=== PATIENT | female | born 1970 | race Caucasian/White ===

== ENCOUNTER 2020-01-09 14:12 | Emergency (ER) | payer MEDICAID, SELFPAY ==
[2020-01-09 14:16] VITALS: BP 139/90; PULSE 118; RESP 18; TEMP 36.5; O2SAT 96
--- NOTE | 2020-01-09 14:20 | W.ED.GENAD ---
Discharge Plan Disposition Patient Disposition: HOME Condition: Stable Discharge Details Chief Complaint: Sorethroat Clinical Impression: Pharyngitis, Pharyngeal candidiasis Primary Care Provider: Lanie Vivas ED Provider: Lore Newman Home Meds and New Rx's Prescriptions: New clindamycin HCl 300 mg capsule 300 mg PO TID 10 Days Qty: 30 RF: 0 nystatin 100,000 unit/mL suspension 500,000 unit BC TID 7 Days Qty: 105 RF: 0 Continued metformin 500 mg Tablet 1,000 mg PO BID RF: 0 glipizide 10 mg Tablet Extended Release 24hr 10 mg PO BID RF: 0 Novolin N NPH U-100 Insulin 100 unit/mL Suspension 25 unit SUBCUT .QEVE RF: 0 lovastatin 20 mg Tablet Extended Release 24 Hr 20 mg PO QHS RF: 0 levothyroxine 25 mcg Capsule 25 mcg PO DAILY RF: 0 citalopram 40 mg Tablet 40 mg PO DAILY RF: 0 famotidine 20 mg Tablet 20 mg PO BID RF: 0 oxybutynin chloride 5 mg Tablet 5 mg PO TID RF: 0 Discharge Instructions Instructions: Pharyngitis (ED), Oral Candidiasis (ED) Additional Instructions: Drink plenty of fluids and get plenty of rest. Alternate tylenol and motrin as needed and directed for pain. Take the nystatin solution as directed. Take 1 tsp (5mL) every 6 hours as needed for pain. Take the antibiotics until finished. Follow-up with your primary care doctor on Saturday. Return to the emergency department with any worsening or new concerning symptoms. Discharge Data Discharge Date/Time-TO BE ENTERED AT DEPARTURE: 01/09/20 15:07 Discharge Physician: Lore Newman Medical Decision Making 49-year-old female presents with sore throat and pain with swallowing since yesterday. Patient appears uncomfortable but airway intact and speaking in full sentences. She is afebrile and appears nontoxic. Her uvula is moderately edematous and erythematous with what appears to be small punctate pustules or white papules on soft palate and posterior oropharynx. There is no obvious tonsillar edema or peritonsillar abscess. She has tender cervical lymphadenopathy. She has no submandibular swelling, drooling or trismus. Her lungs are clear. Rapid strep done on arrival and negative. Suspect bacterial versus viral pharyngitis versus oropharyngeal candidiasis. Will obtain a throat culture. With patient's history of diabetes, will cover for possible bacterial pharyngitis versus candidiasis. A dose of Decadron, clindamycin and Magic mouthwash given here. A prescription for nystatin and clindamycin given. She was advised to follow-up with her primary care doctor and to return here at any time if worse. Medical Records Medical records reviewed: Yes I reviewed the patient's medical records. HPI General Mode of arrival: ambulatory. Date/Time Provider Initiated Documentation: 01/09/20 14:19. Limitations to Documentation: no limitations. Information obtained by: patient. HPI Narrative: Pt is a 49-year-old female who presents to the ED w/ a sore throat and difficulty swallowing since yesterday. She states she feels like her tonsils are swollen. She denies any fever, cough, chest pain, shortness of breath. States her sugars have been under control. Related Data Home Medications Medication Instructions Recorded Confirmed Novolin N NPH U-100 Insulin 25 unit SUBCUT .QEVE 01/09/20 01/09/20 citalopram 40 mg PO DAILY 01/09/20 01/09/20 clindamycin HCl 300 mg PO TID 10 Days #30 cap 01/09/20 famotidine 20 mg PO BID 01/09/20 01/09/20 glipizide 10 mg PO BID 01/09/20 01/09/20 levothyroxine 25 mcg PO DAILY 01/09/20 01/09/20 lovastatin 20 mg PO QHS 01/09/20 01/09/20 metformin 1,000 mg PO BID 01/09/20 01/09/20 nystatin 500,000 unit BC TID 7 Days #105 ml 01/09/20 oxybutynin chloride 5 mg PO TID 01/09/20 01/09/20 Previous Rx's Medication Instructions Recorded clindamycin HCl 300 mg PO TID 10 Days #30 cap 01/09/20 nystatin 500,000 unit BC TID 7 Days #105 ml 01/09/20 Allergies Allergy/AdvReac Type Severity Reaction Status Date / Time Penicillins Allergy Anaphylaxsi Unverified 01/09/20 14:15 s aspirin AdvReac Bleeding Unverified 01/09/20 14:16 General Stated Complaint: Sorethroat LORI: 3 Review of Systems All systems reviewed & are unremarkable except as noted in HPI and below Constitutional Constitutional: Reports as per HPI, Denies chills and Denies fever(s) Eyes Eyes: Denies blurry vision ENT Ears, Nose, Mouth, and Throat: Denies dizziness, Reports sore throat and Denies throat swelling Cardiovascular Cardiovascular: Denies chest pain and Denies dyspnea Respiratory Respiratory: Denies cough and Denies dyspnea Gastrointestinal Gastrointestinal: Denies abdominal pain, Denies diarrhea and Denies vomiting Genitourinary Genitourinary: Denies hematuria and Denies dysuria Musculoskeletal Musculoskeletal: Denies back pain and Denies numbness Integumentary/Breasts Skin/Breast: Denies lesions and Denies rash Neurologic Neurologic: Denies dizziness, Denies localized weakness and Denies numbness Allergic/Immunologic Allergic/Immunologic: Denies throat swelling [facility] Medical History (Updated 01/09/20 @ 14:49 by Lore Newman DO) Diabetes (Chronic) Hypothyroidism (Chronic) Social History Smoking/Tobacco Use Status: Former Tobacco Use Alcohol Intake: never Drug use: Never Substance use type: does not use Do you feel safe at home: Yes Do you feel safe in your relationship?: Yes Exam Const General: cooperative, healthy appearing and no acute distress HENMT Head: normal to inspection Ears: hearing grossly normal bilaterally, external ears normal and TM's normal bilaterally General nose exam: external nose normal Mouth: oral mucosae normal Throat: uvula midline and no peritonsillar masses Other: Moderate erythema, edema and punctate pustules versus white papules noted to soft palate and posterior oropharynx. Moderate edema and erythema noted to the uvula. Eyes General: appearance normal, both eyes and all related structures Neck Neck: normal visual inspection Resp Effort & Inspection: normal respiratory effort and able to speak in complete sentences Auscultation: clear to auscultation bilaterally Cardio Rate: regular rate Rhythm: regular rhythm Skin General skin exam: no rashes or lesions noted Neuro General: patient alert, patient awake and patient oriented x3 Motor: muscle tone normal throughout Extrem General: normal to inspection and full ROM Psych Appearance: grossly normal Affect: normal affect Course Vital Signs Vital signs: Vital Signs Temperature 97.7 F 01/09/20 14:16 Pulse 118 H 01/09/20 14:16 Respiratory Rate 18 01/09/20 14:16 Blood Pressure 139/90 01/09/20 14:16 Pulse Oximetry 96 01/09/20 14:16 Temperature 97.7 F 01/09/20 14:16 Temperature Source Temporal Artery Scan 01/09/20 14:16 Pulse 118 H 01/09/20 14:16 Respiratory Rate 18 01/09/20 14:16 Blood Pressure 139/90 01/09/20 14:16 Blood Pressure Position Supine 01/09/20 14:16 Pulse Oximetry 96 01/09/20 14:16 Oxygen Delivery Method Room Air 01/09/20 14:16 Oxygen Flow Rate 0 01/09/20 14:16 Pain Level 10 01/09/20 14:16
[2020-01-09] MEDS: Dexamethasone 10 MG/ML VIAL PO (14:50)
[2020-01-09] MEDS: Clindamycin 150 MG CAP 450 MG PO (14:52)
[2020-01-09] MEDS: Magic Mouthwash 119 ML BTL 10 ML PO (15:00)
== END 2020-01-09 15:07 | disposition home or self-care (01) ==
PROVIDERS: Emergency Provider Physician Assistant; PCP Nurse Practitioner Family
DX: B37.0 Candidal stomatitis (principal); J02.9 Acute pharyngitis, unspecified; E11.9 Type 2 diabetes mellitus without complications; Z79.4 Long term (current) use of insulin
CPT/HCPCS: 87880; 99283; 87070; 87081; J1100

== ENCOUNTER 2020-01-27 10:43 | Outpatient (REF) | payer MEDICAID, SELFPAY ==
[2020-01-27 15:41] LABS: Hemoglobin A1C 7.8 % (3.8-5.6)
[2020-01-27 15:48] LABS: ALT 30 U/L (14-59); AST 15 U/L (15-37); Albumin 3.2 g/dL (3.4-5.0); Alkaline Phosphatase 101 U/L (46-116); Anion Gap 8.5 mmol/L (3-11); BUN 7 mg/dL (7-18); Bilirubin, Total 0.2 mg/dL (0.2-1.0); CO2 30.5 mmol/L (21.0-32.0); CREATININE 0.77 mg/dL (0.55-1.02); Calcium 8.4 mg/dL (8.5-10.1); Calculated LDL 87 mg/dL (<100); Chloride 102 mmol/L (98-107); Cholesterol 157 mg/dL (<200); Glucose 79 mg/dL (74-106); HDL Cholesterol 40 mg/dL (40-60); Potassium 3.7 mmol/L (3.5-5.1); Sodium 141 mmol/L (136-145); Total Protein 6.3 g/dL (6.4-8.2); Triglyceride 150 mg/dL (<150)
[2020-01-27 16:12] LABS: FREE T4 1.17 ng/dL (0.76-1.46)
== END 2020-01-27 11:03 ==
LOC: NCHCN 10:43
PROVIDERS: PCP Nurse Practitioner Family; Visit Provider Family Medicine
DX: E11.9 Type 2 diabetes mellitus without complications (principal); E03.2 Hypothyroidism due to medicaments and other exogenous substances; I10 Essential (primary) hypertension; Z68.42 Body mass index [BMI] 45.0-49.9, adult
CPT/HCPCS: 80053; 80061; 83036; 84439; 84443

== ENCOUNTER 2020-07-03 16:57 | Emergency (ER) | payer MEDICAID, SELFPAY ==
--- NOTE | 2020-07-03 17:00 | DI.RAD_ITS ---
EXAM: XR WRIST LT COMP NAVICULAR CLINICAL HISTORY: FOOSH 3 weeks ago, ongoing pain. TECHNIQUE: 2D digital imaging was performed. COMPARISON: No exams were available for comparison FINDINGS: BONES: No acute fracture is present. No bony destructive lesion is seen. JOINTS: The carpal bones are normally aligned. SOFT TISSUE: Normal. IMPRESSION: Unremarkable radiographs of the left wrist. DATA REPOSITORY: RADIATION DOSE DELIVERED:
[2020-07-03 17:04] VITALS: BP 157/85; PULSE 96; RESP 18; TEMP 36.5; O2SAT 97
--- NOTE | 2020-07-03 18:42 | W.ED.GENAD ---
Discharge Plan Disposition Patient Disposition: HOME Condition: Good Discharge Details Clinical Impression: Left wrist sprain Primary Care Provider: Lanie Vivas ED Provider: Mattie Monreal Home Meds and New Rx's Prescriptions: Continued metformin 500 mg Tablet 1,000 mg PO BID RF: 0 glipizide 10 mg Tablet Extended Release 24hr 10 mg PO BID RF: 0 Novolin N NPH U-100 Insulin 100 unit/mL Suspension 25 unit SUBCUT .QEVE RF: 0 lovastatin 20 mg Tablet Extended Release 24 Hr 20 mg PO QHS RF: 0 levothyroxine 25 mcg Capsule 125 mcg PO DAILY RF: 0 citalopram 40 mg Tablet 40 mg PO DAILY RF: 0 famotidine 20 mg Tablet 20 mg PO BID RF: 0 oxybutynin chloride 5 mg Tablet 5 mg PO TID RF: 0 citalopram 40 mg tablet 40 mg PO DAILY RF: 0 sumatriptan succinate 50 mg tablet See Rx Instructions .ROUTE .COMPLEX RF: 0 amitriptyline 50 mg tablet 50 mg PO HS RF: 0 gabapentin 300 mg capsule 300 mg PO TID RF: 0 montelukast 10 mg tablet 10 mg PO DAILY RF: 0 lovastatin 20 mg tablet 20 mg PO DAILY RF: 0 lisinopril 2.5 mg tablet 2.5 mg PO DAILY RF: 0 Discharge Instructions Instructions: Wrist Sprain (ED) Additional Instructions: wear splint for comfort elevate ice or heat to affected area Ibuprofen 600 mg 4 times daily if needed for pain take with food Acetaminophen 650 mg 4 times daily if needed for pain you can alternate the 2 if needed Referrals: Lanie Vivas [Primary Care Provider] - Medical Decision Making Reports fall on outstretched hand 3 weeks ago and states it is not improving. She does not tolerate me touching her wrist at all but has full range of motion is no obvious deformity no erythema no bruising no deformity. I have obtained an x-ray including scaphoid view with no acute findings. Wrist splint has been applied she should can continue conservative management follow-up with her primary care provider if needed HPI General Date/Time Provider Initiated Documentation: 07/03/20 17:07. Limitations to Documentation: no limitations. Information obtained by: patient. HPI Narrative: Fell on an outstretched hand 3 weeks ago reports left wrist pain. States she has been elevating resting using ibuprofen and acetaminophen for pain and it has not improved. There was no other injury she has no numbness or tingling good CSM to use distally no obvious deformity Related Data Home Medications Medication Instructions Recorded Confirmed Novolin N NPH U-100 Insulin 25 unit SUBCUT .QEVE 01/09/20 01/09/20 citalopram 40 mg PO DAILY 01/09/20 01/09/20 famotidine 20 mg PO BID 01/09/20 07/03/20 glipizide 10 mg PO BID 01/09/20 07/03/20 levothyroxine 125 mcg PO DAILY 01/09/20 01/09/20 lovastatin 20 mg PO QHS 01/09/20 07/03/20 metformin 1,000 mg PO BID 01/09/20 07/03/20 oxybutynin chloride 5 mg PO TID 01/09/20 07/03/20 amitriptyline 50 mg PO HS 07/03/20 07/03/20 citalopram 40 mg PO DAILY 07/03/20 07/03/20 gabapentin 300 mg PO TID 07/03/20 07/03/20 lisinopril 2.5 mg PO DAILY 07/03/20 07/03/20 lovastatin 20 mg PO DAILY 07/03/20 07/03/20 montelukast 10 mg PO DAILY 07/03/20 07/03/20 sumatriptan succinate See Rx Instructions .ROUTE .COMPLEX 07/03/20 07/03/20 Allergies Allergy/AdvReac Type Severity Reaction Status Date / Time Penicillins Allergy Anaphylaxsi Unverified 07/03/20 17:07 s aspirin AdvReac Bleeding Unverified 07/03/20 17:07 General Stated Complaint: Orthopedic LORI: 3 Review of Systems Musculoskeletal Musculoskeletal: Denies deformity, Reports arthralgias and Denies joint swelling Integumentary/Breasts Skin/Breast: Denies lesions and Denies rash [facility] Medical History (Updated 07/03/20 @ 18:41 by Mattie Monreal NP) Diabetes Hypothyroidism Social History Smoking/Tobacco Use Status: Former Tobacco Use Alcohol Intake: former Drug use: Never Substance use type: does not use Do you feel safe at home: Yes Do you feel safe in your relationship?: Yes Exam Const General: cooperative and no acute distress Nutritional Appearance: obese Extrem General: normal to inspection, full ROM and capillary refill normal Left upper extremity: wrist Details: normal to inspection and tenderness (patient does not tolerate exam, jumping each time I touch her hand wrist or forearm. there is no erythema, and she has good ROM) Location: of the anatomic snuffbox, of the dorsal wrist and of the volar wrist; no ecchymosis; no edema Course Vital Signs Vital signs: Vital Signs Temperature 36.5 C 07/03/20 17:04 Pulse 96 H 07/03/20 17:04 Respiratory Rate 18 07/03/20 17:04 Blood Pressure 157/85 H 07/03/20 17:04 Pulse Oximetry 97 07/03/20 17:04 Temperature 36.5 C 07/03/20 17:04 Temperature Source Temporal Artery Scan 07/03/20 17:04 Pulse 96 H 07/03/20 17:04 Respiratory Rate 18 07/03/20 17:04 Respiratory Effort Non-Labored 07/03/20 17:14 Blood Pressure 157/85 H 07/03/20 17:04 Blood Pressure Position Sitting 07/03/20 17:04 Pulse Oximetry 97 07/03/20 17:04 Oxygen Delivery Method Room Air 07/03/20 17:04 Oxygen Flow Rate 0 07/03/20 17:04 Pain Level 9 07/03/20 17:04
--- NOTE | 2020-07-07 16:03 | DI.VRAD_ITS ---
PROCEDURE INFORMATION: Exam: XR Left Wrist Exam date and time: 07/03/2020 5:24 PM Age: 50 years old Clinical indication: Injury or trauma; Fall; Sprain or strain; Wrist; Left TECHNIQUE: Imaging protocol: XR Left wrist. Views: 3 or more views. COMPARISON: No relevant prior studies available. FINDINGS: Bones/joints: Normal. Soft tissues: Normal. IMPRESSION: No acute findings. Dictated and Authenticated by: Marly Doran MD. Ordering:LUPE Phelps MD
== END 2020-07-03 19:05 | disposition home or self-care (01) ==
PROVIDERS: Emergency Provider Nurse Practitioner Acute Care; PCP Nurse Practitioner Family
DX: S63.592A Other specified sprain of left wrist, initial encounter (principal); W19.XXXA Unspecified fall, initial encounter; E11.9 Type 2 diabetes mellitus without complications; Z79.84 Long term (current) use of oral hypoglycemic drugs
CPT/HCPCS: 99283; 73110; L3908

== ENCOUNTER 2020-09-29 03:12 | Outpatient (CLI) | payer MEDICAID, SELFPAY ==
--- NOTE | 2020-09-29 16:00 | NS.NUTBLAN_ITS ---
ASSESSMENT: Nedra ( 50 y/o F) presents for nutritional consult r/t DM and healthy food choices. Patient reports that she is looking for guidance and help with meal planning. She is currently on Glipizide 10mg BID, Metformin 1000mg BID, and Jenuvia 100mg am. BG fingerstick at office visit revealed 123mg/dl ~ 2hrs postprandial (WNL). Her A1c had crept up to 7.8 ( 01/27/20). No recent labs available.. Her documentation shows that she reports hx GDM. Denies blurred vision. Noted: on Gabapentin. She stated that she had Hx BG in 400's.Patient was able to identify desired BG levels for FBG and postprandial. INTERVENTION: Reviewed CHO counting techniques and provided take home literature to review. Recommended <60g CHO per meal period. Reviewed portion sizes related those to 15g/CHO/SVG. Explained concept of pairing VCHO's w/ PRO to help with BG spikes. Reviewed role of fiber in diet to slow glycemic absorption rates. Explained simple Vs complex CHO. Demonstrated and recommended Vizury and [employer]ot[employer] phone sarwat to assist with calories and CHO intake. Provided healthy meal planning literature. She stated she was less interested in weight loss at this time but wants to focus on reducing BG levels. We discussed long-term complications associated with elevated BG levels and recommended regular visits to welding pantograph machine operator, dentist and engineering lab technician. PLAN: Nedra has agreed to return for DM self management education and support. She may benefit from CGM per PCP approval. we can educate and place at this office and review data with her to help with DM self management. Time Spent Face to Face: 1 hour/4 units
== END 2020-09-29 03:32 ==
PROVIDERS: PCP Nurse Practitioner Family; Visit Provider Dietitian, Registered
DX: E11.9 Type 2 diabetes mellitus without complications (principal); Z79.84 Long term (current) use of oral hypoglycemic drugs; Z71.3 Dietary counseling and surveillance
CPT/HCPCS: 97802

== ENCOUNTER 2020-12-23 10:51 | Emergency (ER) | payer MEDICAID, SELFPAY ==
--- NOTE | 2020-12-23 10:52 | W.ED.GENAD ---
Discharge Plan Disposition Patient Disposition: HOME Condition: Stable Discharge Details Clinical Impression: Left shoulder pain Primary Care Provider: Lanie Vivas ED Provider: Blue Navarro Home Meds and New Rx's Prescriptions: Continued nystatin [Nyamyc] 100,000 unit/gram powder 1 applic topical BID Qty: 60 RF: 12 metformin 500 mg Tablet 1,000 mg PO BID RF: 0 glipizide 10 mg Tablet Extended Release 24hr 10 mg PO BID RF: 0 levothyroxine 25 mcg Capsule 125 mcg PO DAILY RF: 0 famotidine 20 mg Tablet 20 mg PO BID RF: 0 oxybutynin chloride 5 mg Tablet 5 mg PO TID RF: 0 citalopram 40 mg tablet 40 mg PO DAILY RF: 0 sumatriptan succinate 50 mg tablet See Rx Instructions .ROUTE .COMPLEX RF: 0 amitriptyline 50 mg tablet 50 mg PO HS RF: 0 gabapentin 300 mg capsule 300 mg PO TID RF: 0 montelukast 10 mg tablet 10 mg PO DAILY RF: 0 lovastatin 20 mg tablet 20 mg PO DAILY RF: 0 lisinopril 2.5 mg tablet 2.5 mg PO DAILY RF: 0 Discharge Instructions Instructions: Shoulder Pain (ED) Additional Instructions: X-ray does not reveal any fracture or dislocation. Wear sling as needed, advance activity as tolerated. Be sure to do passive range of motion at least 4 times daily to avoid a frozen shoulder. Rcuu-mmo-erremar medications as directed for symptomatic control. Cool and/or warm compresses every 2 hours for 20 minutes. Please watch for new or worsening symptoms and return to the ER for any concerns. Please follow-up with your primary care provider as already scheduled. If symptoms persist, outpatient referral to physical therapy, and/or orthopedics and potential MRI may be required for further evaluation of your symptoms. Medical Decision Making 50-year-old female, [id number], presents complaining of left shoulder pain-injury that she sustained approximately 3 weeks ago when she slipped down stairs. Has had pain ever since, worse with movement. Nothing really improves the discomfort. Neuro, vascular, tendon intact. No obvious deformity. Limited range of motion. Given the duration of her injury, will obtain x-ray to rule any bony involvement; however, she will likely need outpatient MRI to further evaluate potential rotator cuff injury. X-ray read by radiology as small calcific foci adjacent to the greater tuberosity suggestive of a calcific peritendinitis. Otherwise the bones and soft tissue are unremarkable appearance. No evidence of fracture or dislocation. Discussed x-ray findings with patient. Discussed options. Will be given 60 IM Toradol now. Will be given a sling, we discussed the importance of passive range of motion. She will continue [id number] medications, using her sling, and follow-up with her primary care provider. We did discuss that outpatient physical therapy and/or referral to orthopedics and MRI may be required if conservative therapy is not helping. Patient agreeable to this plan and has no additional questions or concerns. Medical Records Medical records reviewed: Yes I reviewed the patient's medical records. HPI General Mode of arrival: ambulatory. Date/Time Provider Initiated Documentation: 12/23/20 10:52. Limitations to Documentation: no limitations. Information obtained by: patient. HPI Narrative: This is a 50-year-old female, [id number], past medical history that includes diabetes, GERD, hypertension, hypothyroidism, migraines, morbid obesity, presenting for left shoulder injury. Patient states that she fell approximately 3 weeks ago walking down stairs, her left leg gave out, this does happen occasionally. She was using her left arm to hold onto the railing, describes her injury as a jerking and twisting mechanism. She states that she has had pain ever since, moderate in nature, movement makes it worse. She has had occasional tingling in her left arm, primarily in her hand, denies weakness or numbness. She has not been evaluated for this. She is using eggn-vjv-znefszi Tylenol arthritis medication as well as warm compresses with minimal relief. She is scheduled to be seen by her primary care provider on the of this month but does not feel as though she can wait that long. She denies any other injuries from the fall. Denies striking her head. She denies any chest pain, shortness of breath abdominal pain, nausea, vomiting, hematuria. She does report chronic back pain that is unchanged. Related Data Home Medications Medication Instructions Recorded Confirmed famotidine 20 mg PO BID 01/09/20 12/23/20 glipizide 10 mg PO BID 01/09/20 12/23/20 levothyroxine 125 mcg PO DAILY 01/09/20 12/23/20 metformin 1,000 mg PO BID 01/09/20 12/23/20 oxybutynin chloride 5 mg PO TID 01/09/20 12/23/20 amitriptyline 50 mg PO HS 07/03/20 12/23/20 citalopram 40 mg PO DAILY 07/03/20 12/23/20 gabapentin 300 mg PO TID 07/03/20 12/23/20 lisinopril 2.5 mg PO DAILY 07/03/20 12/23/20 lovastatin 20 mg PO DAILY 07/03/20 12/23/20 montelukast 10 mg PO DAILY 07/03/20 12/23/20 sumatriptan succinate See Rx Instructions .ROUTE .COMPLEX 07/03/20 12/23/20 nystatin 100,000 unit/gram topical 1 applic TOPICAL BID #60 g 09/14/20 12/23/20 powder Previous Rx's Medication Instructions Recorded nystatin 100,000 unit/gram topical 1 applic TOPICAL BID #60 g 09/14/20 powder Allergies Allergy/AdvReac Type Severity Reaction Status Date / Time bupropion [Wellbutrin] Allergy Severe Verified 12/23/20 10:57 lamotrigine [From Lamictal] Allergy Severe Verified 12/23/20 10:57 Penicillins Allergy Anaphylaxsi Unverified 12/23/20 10:57 s ibuprofen AdvReac Intermediate nose Verified 12/23/20 10:57 bleeding aspirin AdvReac Bleeding Unverified 12/23/20 10:57 General LORI: 3 Review of Systems Constitutional Constitutional: Denies headache(s) and Denies weakness ENT Ears, Nose, Mouth, and Throat: Denies headache(s) and Denies neck pain Cardiovascular Cardiovascular: Denies chest pain and Denies dyspnea Respiratory Respiratory: Denies dyspnea Gastrointestinal Gastrointestinal: Denies abdominal pain, Denies nausea and Denies vomiting Musculoskeletal Musculoskeletal: Reports back pain, Denies neck pain, Denies numbness, Reports stiffness and Reports tingling Integumentary/Breasts Skin/Breast: Denies erythema Neurologic Neurologic: Denies headache(s), Denies numbness, Reports tingling and Denies weakness [facility] Medical History Diabetes GERD (gastroesophageal reflux disease) Hypertension Hypothyroidism Leg mass Migraine Morbidly obese Multiple joint pain AMANDA (obstructive sleep apnea) Skin ulcer of groin, limited to breakdown of skin seconary to obesity and DM Yeast dermatitis Social History Smoking/Tobacco Use Status: Former Tobacco Use Smoking risk assessment performed?: Yes Alcohol Intake: former Drug use: Never Substance use type: does not use Current gender identity: female Do you feel safe at home: Yes Do you feel safe in your relationship?: Yes Exam Const General: cooperative, healthy appearing, comfortable and no acute distress Orientation: alert, awake and oriented x3 HENMI Head: normal to inspection, normocephalic and atraumatic Eyes General: appearance normal, both eyes and all related structures Conjunctivae: conjunctivae normal Neck Neck: normal visual inspection, full ROM, trachea midline, supple and nontender Chest Chest: normal inspection of the chest Resp Effort & Inspection: normal respiratory effort and able to speak in complete sentences Auscultation: clear to auscultation bilaterally Cardio Rate: regular rate Rhythm: regular rhythm GI Palpation: soft and nontender Back/Spine/Pelvis Back: back tenderness (Diffuse lumbar) Skin General skin exam: no rashes or lesions noted Neuro General: patient alert, patient awake, patient oriented x3, moves all extremities and no focal motor deficits Speech: speech normal Gait: normal gait Motor: muscle tone normal throughout Sensory Exam: no sensory deficits noted Extrem General: normal to inspection and capillary refill normal Left upper extremity: normal to inspection, normal capillary refill, shoulder/upper arm Details: inspection abnormal, tenderness (Diffusely over the entire shoulder, no bony point tenderness), axillary nerve sensory function normal and abnormal ROM (Patient unable to raise arm greater than 45 degrees in any direction) Details: held in an abnormal fashion Details: in ADduction, pain with active ROM and pain with passive ROM; no swelling, elbow/forearm Details: normal to inspection and normal ROM; no tenderness and no swelling, wrist Details: normal to inspection and normal vascular exam; no tenderness and no swelling and hand Details: normal to inspection, normal capillary refill, neuromotor exam normal, neurosensory exam normal and tendon exam normal Psych Appearance: grossly normal Mental Status: mental status grossly normal
[2020-12-23 10:55] VITALS: BP 142/104; PULSE 88; RESP 18; TEMP 36.5; O2SAT 100
--- NOTE | 2020-12-23 11:00 | DI.RAD_ITS ---
EXAM: XR SHOULDER LT COMPLETE 2+V CLINICAL HISTORY: fall 3 weeks ago, pain continues TECHNIQUE: COMPARISON: No exams were available for comparison FINDINGS: Five views were obtained. There are small calcific foci adjacent to the greater tuberosity of the hu merus suggestive of a calcific peritendinitis. Otherwise the bones and soft tissues are unremarkable in appearance. No evidence of a fracture or dislocation. IMPRESSION: RADIATION DOSE DELIVERED: Total DLP
--- NOTE | 2020-12-29 08:36 | W.NUTCONSULT ---
Date of service: 12/27/20 Time of Service: 08:36 Nutritional Consult ASSESSMENT: Nedra returns for medical nutrition therapy for diabetes self management education. Most recent A1C from last year (02/10/20) was 7.8% indicates mildly elevated blood sugars. Has hx of blood sugars > 300 mg/dl but reports this has not happened in last 6 months. Meds include metformin BID. She checks her sugars most days, fasting blood sugars reported < 100mg/dl, post prandial levels reports < 140 mg/dl. Diet recall indicates reliance on processed foods. BMI indicates class 2 obesity INTERVENTION: Overall, Nedra is managing her Dm2 well by following medical regime and checking blood sugars on regular basis. Goal at this time is 10% weight loss in next 6 months buy following a lower calorie diet and increasing exercise to 150 min weekly. Educated Nedra on meal plans to help her reduce her caloric intake. Encouraged Nedra to walk 1-2 miles daily. Written material and meal plans provided MONITORING AND EVALUATION: No follow up meeting scheduled at this time. I encouraged Nedra to make follow up appt. if her A1C is > 7% at next blood draw. Time Spent in Nutritional Counseling and Treatment: 30
== END 2020-12-23 12:28 | disposition home or self-care (01) ==
PROVIDERS: Emergency Provider Physician Assistant; PCP Nurse Practitioner Family
DX: M25.512 Pain in left shoulder (principal); W10.8XXA Fall (on) (from) other stairs and steps, initial encounter
CPT/HCPCS: 96372; 99284; 73030; 99283

== ENCOUNTER 2020-12-27 08:03 | Outpatient (CLI) | payer MEDICAID, SELFPAY ==
--- NOTE | 2020-12-27 13:30 | NS.NUTBLAN_ITS ---
Nedra returns for medical nutrition therapy for diabetes self management education. Most recent A1C: 7.8% (01/27/20). Reports haivng blood work this week. Nedra reports fasting sugars typically 80-100 mg and post prandial levels < 150 mg/dl. She continues to take metformin. Diet record indicates reliance on convenience foods. Session today focused on ways to incorporate more home cooked meals and to follow a consistent carbohydrate intake during day. Encouraged weekly exercise of minimum of 150 min per week. Overall, Nedra appears to be managing her DM2 well with adequate glycemic control. Goal at this time is for 10% weight loss in next 6 months and increase in home made meals. No follow up appt. made at this time.
== END 2020-12-27 08:04 | disposition home or self-care (01) ==
LOC: DS 12-28 08:05
PROVIDERS: Visit Provider Dietitian, Registered
DX: E11.9 Type 2 diabetes mellitus without complications (principal); Z79.84 Long term (current) use of oral hypoglycemic drugs; Z71.3 Dietary counseling and surveillance
CPT/HCPCS: 97803

== ENCOUNTER 2021-01-25 02:15 | Outpatient (CLI) | payer MEDICAID, SELFPAY ==
--- NOTE | 2021-01-25 13:00 | DI.MAMMO_ITS ---
Exam(s) MAMMO SCREENING EXAM: MAMMO SCREENING CLINICAL HISTORY: SCREENING,PREVENTIVE HEALTH CARE,Z00.00 TECHNIQUE: Mammograms were interpreted according to the usual protocol including computer analysis w Study[employer] CAD system, tomosynthesis and C-view imaging. COMPARISON: FINDINGS: The breasts are of moderate density with fairly symmetrical distribution of fibroglandular tissue. N o dominant mass or clumped microcalcification is identified in either breast. The current examinatio n is compared with previous examinations including April 2018 and there has been no gross interval c hange in appearance comparison with prior studies. IMPRESSION: No specific evidence of malignancy at this time. Routine screening examinations are suggested at yea rly intervals in this age group according to the ACS ACR guidelines. BI-RADS Category 1 - Negative Breast Density - Category B - Scattered areas of fibroglandular density
== END 2021-01-25 02:35 ==
PROVIDERS: PCP Nurse Practitioner Family; Visit Provider Nurse Practitioner Family
DX: Z12.31 Encounter for screening mammogram for malignant neoplasm of breast (principal)
CPT/HCPCS: 77063; 77067

== ENCOUNTER 2021-03-03 13:00 | Outpatient (CLI) | payer MEDICAID, SELFPAY ==
--- NOTE | 2021-03-03 13:00 | NS.NUTBLAN_ITS ---
Nedra returns for Medical Nutrition Therapy for diabetes self management education. Most recent A1C: 7.3% (July 2020) indicates slightly elevated blood sugars. Dm meds include: januvia 100 mg qd, metformin 500 mg BID, 6 units humolog with dinner. Has been using Libre2 continuous glucose monitor for last 14 days. Diet recall indicates mostly well balanced meals, occasionally skips meals or eats high sugar/high fat meals. Walks daily 30-45 minutes. Complains of foot pain/swelling. BMI 48 indicates morbid obesity. Ambulatory glucose profile indicates meeting glycemic goals: in target range 84%, no hypoglycemia noted, hyperglycemia 14% of time. Overall, Nedra is very happy with using her cgm- she likes checking her serum glucose multiple times during day in order to adjust meals for glycemic control in goal range. Educated Nedra how to place sensor and had her friend do it during visit. Friend (Makenzie) lives across from Nedra and they have been good supports for each other. Reviewed glucose report with Nedra and encouraged her to continue to meet glycemic goals. Encouraged Nedra to follow up with PCP re: referral to food service representative for annual foot eval. Encouraged Nedra also to have annual eye exam. No follow up planned at this time. Recommend A1C at next blood draw.
== END 2021-03-03 13:01 ==
LOC: DS 03-15 13:52
PROVIDERS: PCP Nurse Practitioner Family; Visit Provider Dietitian, Registered
DX: E11.9 Type 2 diabetes mellitus without complications (principal); Z79.4 Long term (current) use of insulin; Z71.3 Dietary counseling and surveillance; Z79.84 Long term (current) use of oral hypoglycemic drugs
CPT/HCPCS: 97803

== ENCOUNTER 2021-06-02 16:48 | Outpatient (REF) | payer MEDICAID, SELFPAY ==
[2021-06-02 20:26] LABS: Anion Gap 8.2 mmol/L (3-11); BUN 13 mg/dL (7-18); CO2 28.8 mmol/L (21.0-32.0); CREATININE 0.8 mg/dL (0.55-1.02); Calcium 9.1 mg/dL (8.5-10.1); Chloride 100 mmol/L (98-107); Glucose 339 mg/dL (74-106); Potassium 4.2 mmol/L (3.5-5.1); Sodium 137 mmol/L (136-145); TSH (W/Ref FT4) 8.17 uIU/mL (0.36-3.74)
[2021-06-02 20:44] LABS: FREE T4 1.03 ng/dL (0.76-1.46)
== END 2021-06-02 16:49 | disposition home or self-care (01) ==
LOC: NCHCN 16:48
PROVIDERS: PCP Nurse Practitioner Family; Visit Provider Nurse Practitioner Family
DX: E11.9 Type 2 diabetes mellitus without complications (principal); E03.2 Hypothyroidism due to medicaments and other exogenous substances
CPT/HCPCS: 80048; 84439; 84443

== ENCOUNTER 2021-12-01 16:27 | Outpatient (REF) | payer MEDICAID, SELFPAY ==
[2021-12-01 18:41] LABS: COMMENT (LAB VIEW ONLY) 38.66 mg/dL; Microalb ug/mg Crea 11.6 ug/mg Cr
[2021-12-01 18:46] LABS: Hemoglobin A1C 7.1 % (<5.7)
[2021-12-01 18:54] LABS: ALT 27 U/L (14-59); AST 14 U/L (15-37); Albumin 4.1 g/dL (3.4-5.0); Alkaline Phosphatase 113 U/L (46-116); BUN 12 mg/dL (7-18); Bilirubin, Total 0.3 mg/dL (0.2-1.0); CREATININE 0.7 mg/dL (0.55-1.02); Calcium 9.7 mg/dL (8.5-10.1); Calculated LDL 98 mg/dL (<100); Chloride 100 mmol/L (98-107); Cholesterol 174 mg/dL (<200); Glucose 116 mg/dL (74-106); HDL Cholesterol 43 mg/dL (40-60); Potassium 4.3 mmol/L (3.5-5.1); Sodium 138 mmol/L (136-145); TSH 2.31 uIU/mL (0.36-3.74); Triglyceride 168 mg/dL (<150)
== END 2021-12-01 16:28 | disposition home or self-care (01) ==
LOC: NCHCN 16:27
PROVIDERS: PCP Nurse Practitioner Family; Visit Provider Physician Assistant
DX: E03.2 Hypothyroidism due to medicaments and other exogenous substances (principal); E11.9 Type 2 diabetes mellitus without complications; I10 Essential (primary) hypertension
CPT/HCPCS: 80053; 80061; 82043; 82570; 83036; 84443

== ENCOUNTER 2022-05-19 10:32 | Emergency (ER) | payer MEDICAID, SELFPAY ==
[2022-05-19 10:42] VITALS: BP 143/71; PULSE 71; RESP 18; O2SAT 99
[2022-05-19] MEDS: Ketorolac 60 MG/2 ML VIAL IM (11:23)
--- NOTE | 2022-05-19 11:31 | W.ED.GENAD ---
Discharge Plan Disposition Patient Disposition: HOME Condition: Improving Discharge Details Clinical Impression: Acute exacerbation of chronic low back pain Primary Care Provider: Lanie Vivas ED Provider: Blue Navarro Home Meds and New Rx's Prescriptions: New naproxen [Naprosyn] 500 mg tablet 500 mg PO BID PRNQty: 14 0RF cyclobenzaprine 5 mg tablet 5 mg PO TID PRNQty: 10 0RF Continued nystatin [Nyamyc] 100,000 unit/gram powder 1 applic topical BID Qty: 60 12RF Rx Instructions: apply to affected area BID for 7days. use prn for yeast dermatitis hydroxyzine HCl 25 mg tablet 25 mg PO DAILY Label Comments: TAKE 1-2 TABLETS BY MOUTH AT NIGHT NEEDED FOR SLEEP duloxetine 30 mg capsule,delayed release(DR/EC) 2 cap PO DAILY Label Comments: TAKE ONE CAPSULE BY MOUTH EVERY DAY metformin 500 mg Tablet 1,000 mg PO BID glipizide 10 mg Tablet Extended Release 24hr 10 mg PO BID levothyroxine 25 mcg Capsule 125 mcg PO DAILY famotidine 20 mg Tablet 20 mg PO BID oxybutynin chloride 5 mg Tablet 5 mg PO TID citalopram 40 mg tablet 40 mg PO DAILY Label Comments: TK 1 T PO D sumatriptan succinate 50 mg tablet See Rx Instructions .ROUTE .COMPLEX Label Comments: TK 1 T PO AOS OF MIGRAINE. MAY REPEAT IN 2 H FOR 1 Rx Instructions: 50 mg orally amitriptyline 50 mg tablet 50 mg PO HS Label Comments: TK 1 T PO D HS gabapentin 300 mg capsule 300 mg PO TID Label Comments: TK 1 C PO TID montelukast 10 mg tablet 10 mg PO DAILY Label Comments: TK 1 T PO D FOR ASTHMA lovastatin 20 mg tablet 20 mg PO DAILY Label Comments: TK 1 T PO D WITH ZARA MEAL lisinopril 2.5 mg tablet 2.5 mg PO DAILY Label Comments: TK 1 T PO D Discharge Instructions Instructions: Back Pain (ED) Additional Instructions: Naprosyn and Flexeril as directed, Flexeril may cause drowsiness. Gentle stretching as tolerated. Cool and/or warm compresses every 2 hours for 20 minutes. Please watch for new or worsening symptoms and return to the ER for any concerns. Lastly, please contact your primary care provider on Saturday to discuss your ER visit, ongoing symptoms, and need for outpatient reevaluation. Discharge Data Discharge Date/Time-TO BE ENTERED AT DEPARTURE: 05/19/22 11:54 Medical Decision Making This is a 51-year-old female who reports chronic back pain for at least 10 years, reports having had care in [place], back injections which actually did not help and caused some intermittent tingling in her left lower extremity approximately 5 years ago. She has subsequently moved to the area, has been seen by our pain team as well as through her PCP and has participated in physical therapy. 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 Denies IV drug use, fever, chest pain, abdominal pain, nausea, vomiting, change in bowel or bladder function, focal weakness. Clinically she appears well, nontoxic, neurologically intact. No midline point tenderness or evidence of cauda equina. Discussed options, she is agreeable to IM Toradol and I will provide a prescription for Flexeril. Recommend she contact her PCP on Saturday to discuss her ER visit and ongoing discomfort. Patient does wonder if crutches or a walker would be beneficial. We will provide crutches Standard discharge and return precautions were provided. Patient understands, is agreeable to this plan, and has no additional questions or concerns upon discharge. This documentation was generated using [employer] dictation system, please disregard any oddities of phrase or misspellings. Medical Records Medical records reviewed: Yes I reviewed the patient's medical records. HPI General Mode of arrival: ambulatory. Date/Time Provider Initiated Documentation: 05/19/22 10:36. Limitations to Documentation: no limitations. Information obtained by: patient. History of Present Illness 51 year old F presents to the emergency department with the chief complaint of Chronic back pain exacerbation, described as moderate, with intensity rated at 7. Quality is described as aching, and is localized to the back and left. Patient extremity (Left lower). Patient started experiencing this week(s) (1) and it has been constant. No relieving factors improve symptom(s), Movement worsens symptoms . Patient notes denies fever/chills, nausea/vomiting, rash and weakness. Patient did receive the following treatments prior to arrival, none Related Data Home Medications Medication Instructions Recorded Confirmed famotidine 20 mg tablet 20 mg PO BID 01/09/20 12/23/20 glipizide 10 mg tablet, extended 10 mg PO BID 01/09/20 05/19/22 release 24 hr levothyroxine 25 mcg capsule 125 mcg PO DAILY 01/09/20 05/19/22 metformin 500 mg tablet 1,000 mg PO BID 01/09/20 05/19/22 oxybutynin chloride 5 mg tablet 5 mg PO TID 01/09/20 05/19/22 amitriptyline 50 mg tablet 50 mg PO HS 07/03/20 12/23/20 citalopram 40 mg tablet 40 mg PO DAILY 07/03/20 12/23/20 gabapentin 300 mg capsule 300 mg PO TID 07/03/20 12/23/20 lisinopril 2.5 mg tablet 2.5 mg PO DAILY 07/03/20 05/19/22 lovastatin 20 mg tablet 20 mg PO DAILY 07/03/20 12/23/20 montelukast 10 mg tablet 10 mg PO DAILY 07/03/20 05/19/22 sumatriptan succinate 50 mg tablet See Rx Instructions .Route .COMPLEX 07/03/20 12/23/20 nystatin 100,000 unit/gram topical 1 applic topical BID #60 grams 09/14/20 05/19/22 powder ([facility]) cyclobenzaprine 5 mg tablet 5 mg PO TID PRN #10 tabs 05/19/22 duloxetine 30 mg capsule,delayed 2 cap PO DAILY 05/19/22 05/19/22 release hydroxyzine HCl 25 mg tablet 25 mg PO DAILY 05/19/22 05/19/22 naproxen 500 mg tablet (Naprosyn) 500 mg PO BID PRN #14 tabs 05/19/22 Previous Rx's Medication Instructions Recorded nystatin 100,000 unit/gram topical 1 applic topical BID #60 grams 09/14/20 powder ([facility]) cyclobenzaprine 5 mg tablet 5 mg PO TID PRN #10 tabs 05/19/22 naproxen 500 mg tablet (Naprosyn) 500 mg PO BID PRN #14 tabs 05/19/22 Allergies Allergy/AdvReac Type Severity Reaction Status Date / Time bupropion [Wellbutrin] Allergy Severe Verified 06/14/21 10:35 lamotrigine [From Lamictal] Allergy Severe Verified 06/14/21 10:35 Penicillins Allergy Anaphylaxsi Unverified 06/14/21 10:35 s ibuprofen AdvReac Intermediate nose Verified 06/14/21 10:35 bleeding aspirin AdvReac Bleeding Unverified 06/14/21 10:35 General Stated Complaint: Nk/Back Pain LORI: 4 Review of Systems Constitutional Constitutional: Denies fever(s) and Denies weakness Cardiovascular Cardiovascular: Denies chest pain and Denies dyspnea Respiratory Respiratory: Denies dyspnea Gastrointestinal Gastrointestinal: Denies abdominal pain, Denies nausea and Denies vomiting Genitourinary Genitourinary: Denies dysuria Musculoskeletal Musculoskeletal: Reports back pain, Denies numbness, Reports stiffness and Reports tingling Integumentary/Breasts Skin/Breast: Denies rash Neurologic Neurologic: Denies numbness, Reports tingling and Denies weakness PFSH All Active Problems Left shoulder pain (Acute) Acute exacerbation of chronic low back pain (Acute) Morbidly obese (Acute) Yeast dermatitis (Acute) Skin ulcer of groin, limited to breakdown of skin (Acute) seconary to obesity and DM Medical History Diabetes GERD (gastroesophageal reflux disease) Hypertension Hypothyroidism Leg mass Migraine Multiple joint pain AMANDA (obstructive sleep apnea) Social History Smoking/Tobacco Use Status: Current every day Tobacco Type: cigarettes Smoking risk assessment performed?: Yes Alcohol Intake: former Drug use: Never Substance use type: does not use Current gender identity: female Do you feel safe at home: Yes Do you feel safe in your relationship?: Yes Exam Const General: cooperative, healthy appearing, comfortable and no acute distress Orientation: alert and awake [facility] Head: normal to inspection, normocephalic and atraumatic Eyes Conjunctivae: conjunctivae normal Neck Neck: normal visual inspection, full ROM, no meningeal signs, trachea midline and supple Resp Effort & Inspection: normal respiratory effort and able to speak in complete sentences Auscultation: clear to auscultation bilaterally Cardio Rate: regular rate Rhythm: regular rhythm GI Inspection: obesity Palpation: soft and nontender Back/Spine/Pelvis Back: no CVA tenderness and back tenderness (Diffuse, mild left lower lumbar) Thoracic/Lumbar Spine: straight leg raise positive (R neg, L 10 degrees) Sacroiliac joints: on the left tender to palpation Skin General skin exam: no rashes or lesions noted Neuro General: patient alert, patient awake, moves all extremities and no focal motor deficits Cognition: normal cognition Speech: speech normal Gait: normal gait (Minimally) Motor: muscle tone normal throughout and strength 5/5 throughout Sensory Exam: no sensory deficits noted Extrem General: normal to inspection, full ROM, capillary refill normal, no pedal edema and no calf tenderness Psych Appearance: grossly normal Mental Status: mental status grossly normal Course Vital Signs Vital signs: Vital Signs Pulse 71 05/19/22 10:42 Respiratory Rate 18 05/19/22 10:42 Blood Pressure 143/71 H 05/19/22 10:42 Pulse Oximetry 99 05/19/22 10:42 Temperature Source Temporal Artery Scan 05/19/22 10:42 Pulse 71 05/19/22 10:42 Respiratory Rate 18 05/19/22 10:42 Respiratory Effort Non-Labored 05/19/22 10:45 Blood Pressure 143/71 H 05/19/22 10:42 Blood Pressure Position Supine 05/19/22 10:42 Pulse Oximetry 99 05/19/22 10:42 Oxygen Delivery Method Room Air 05/19/22 10:42 Oxygen Flow Rate 0 05/19/22 10:42 Pain Level 0 05/19/22 10:42
== END 2022-05-19 11:54 | disposition home or self-care (01) ==
PROVIDERS: Emergency Provider Physician Assistant; PCP Nurse Practitioner Family
DX: G89.11 Acute pain due to trauma (principal); G89.29 Other chronic pain; M54.50 Low back pain, unspecified; E11.9 Type 2 diabetes mellitus without complications; I10 Essential (primary) hypertension; F17.210 Nicotine dependence, cigarettes, uncomplicated; Z79.84 Long term (current) use of oral hypoglycemic drugs; X50.9XXA Other and unspecified overexertion or strenuous movements or postures, initial encounter; Y99.8 Other external cause status
CPT/HCPCS: 96372; 99284; J1885

== ENCOUNTER 2022-10-11 09:40 | Outpatient (REF) | payer MEDICAID, SELFPAY ==
[2022-10-11 15:24] LABS: HCT 46.4 % (36.0-46.0); HGB 15.4 g/dL (11.2-15.7); MCH 30.7 pg (27.0-33.0); MCHC 33.2 % (32.0-36.0); MCV 93 fL (80-95); MPV 11.3 fL (8.0-11.0); Platelet Count 366 10^3/uL (130-400); RBC 5.01 10^6/uL (3.93-5.22); RDW 12.6 % (11.7-14.6); RDW-SD 43.2 fL; WBC 13.41 10^3/uL (4.4-10.8)
[2022-10-11 15:49] LABS: ALT 29 U/L (14-59); AST 18 U/L (15-37); Albumin 3.9 g/dL (3.4-5.0); Alkaline Phosphatase 153 U/L (46-116); Anion Gap 8.6 mmol/L (3-11); BUN 13 mg/dL (7-18); Bilirubin, Total 0.3 mg/dL (0.2-1.0); CO2 30.4 mmol/L (21.0-32.0); CREATININE 0.7 mg/dL (0.55-1.02); Calcium 9.6 mg/dL (8.5-10.1); Calculated LDL 124 mg/dL (<100); Chloride 98 mmol/L (98-107); Cholesterol 199 mg/dL (<200); Glucose 216 mg/dL (74-106); HDL Cholesterol 43 mg/dL (40-60); Potassium 4.6 mmol/L (3.5-5.1); Sodium 137 mmol/L (136-145); TSH 2.11 uIU/mL (0.36-3.74); Total Protein 7.5 g/dL (6.4-8.2); Triglyceride 160 mg/dL (<150)
[2022-10-11 15:53] LABS: Hemoglobin A1C 9.1 % (<5.7)
== END 2022-10-11 09:41 | disposition home or self-care (01) ==
LOC: NCHCN 09:40
PROVIDERS: PCP Nurse Practitioner Family; Visit Provider Physician Assistant
DX: E03.2 Hypothyroidism due to medicaments and other exogenous substances (principal); E11.9 Type 2 diabetes mellitus without complications; I10 Essential (primary) hypertension
CPT/HCPCS: 80053; 80061; 85027; 83036; 84443

== ENCOUNTER 2022-10-20 06:31 | Emergency (ER) | payer MEDICAID, SELFPAY ==
[2022-10-20 06:33] VITALS: PULSE 93; RESP 16; TEMP 36.8; O2SAT 99
[2022-10-20 06:38] VITALS: BP 146/79
--- NOTE | 2022-10-20 07:43 | W.ED.GENAD ---
Discharge Plan Disposition Patient Disposition: Home Condition: Stable Discharge Details Clinical Impression: Otitis externa, Otitis media Primary Care Provider: Lanie Vivas ED Provider: Lore Newman Home Meds and New Rx's Prescriptions: New clindamycin HCl 150 mg capsule 450 mg PO TID 7 Days Qty: 63 0RF methylprednisolone 4 mg tablets,dose pack See Rx Instructions .ROUTE .COMPLEX MDD see package directions 6 Days Qty: 21 0RF Rx Instructions: orally per package directions PO per package directions; Continued nystatin [Nyamyc] 100,000 unit/gram powder 1 applic topical BID Qty: 60 12RF Rx Instructions: apply to affected area BID for 7days. use prn for yeast dermatitis hydroxyzine HCl 25 mg tablet 25 mg PO DAILY Label Comments: TAKE 1-2 TABLETS BY MOUTH AT NIGHT NEEDED FOR SLEEP duloxetine 30 mg capsule,delayed release(DR/EC) 2 cap PO DAILY Label Comments: TAKE ONE CAPSULE BY MOUTH EVERY DAY naproxen [Naprosyn] 500 mg tablet 500 mg PO BID PRNQty: 14 0RF cyclobenzaprine 5 mg tablet 5 mg PO TID PRNQty: 10 0RF metformin 500 mg Tablet 1,000 mg PO BID glipizide 10 mg Tablet Extended Release 24hr 10 mg PO BID levothyroxine 25 mcg Capsule 125 mcg PO DAILY famotidine 20 mg Tablet 20 mg PO BID oxybutynin chloride 5 mg Tablet 5 mg PO TID citalopram 40 mg tablet 40 mg PO DAILY Label Comments: TK 1 T PO D sumatriptan succinate 50 mg tablet See Rx Instructions .ROUTE .COMPLEX Label Comments: TK 1 T PO AOS OF MIGRAINE. MAY REPEAT IN 2 H FOR 1 Rx Instructions: 50 mg orally amitriptyline 50 mg tablet 50 mg PO HS Label Comments: TK 1 T PO D HS gabapentin 300 mg capsule 300 mg PO TID Label Comments: TK 1 C PO TID montelukast 10 mg tablet 10 mg PO DAILY Label Comments: TK 1 T PO D FOR ASTHMA lovastatin 20 mg tablet 20 mg PO DAILY Label Comments: TK 1 T PO D WITH ZARA MEAL lisinopril 2.5 mg tablet 2.5 mg PO DAILY Label Comments: TK 1 T PO D Discharge Instructions Instructions: Otitis Externa (ED), Ear Infection (ED) Additional Instructions: Your symptoms appear to be mainly due to an outer ear infection or otitis externa. You may also be developing a middle ear infection or otitis media. You are being sent home with antibiotic eardrops to apply 3 drops in your left ear twice daily for 7 to 10 days. A prescription for a low-dose steroid pack has also been sent electronically to your pharmacy to take as directed until finished to help with pain and swelling. Be sure to check your sugar regularly and adjust your insulin as needed as steroids can raise your blood sugar. A prescription for an oral antibiotic has also been sent electronically to your pharmacy to take if your symptoms do not improve or worsen. Follow-up with your primary care doctor in 1 week. You should also follow-up with the ear nose and throat doctor for further evaluation in the next 2 weeks. Return to the emergency department with any worsening or new concerning symptoms. Referrals: Long Valenzuela DO [OSTEOPATHIC DOCTOR] - Tyrese Reddy MD [ [facility] STAFF PHYSICIAN] - Discharge Data Discharge Physician: Lore Newman Medical Decision Making 52-year-old female with a history of morbid obesity, hypertension, hypothyroidism, GERD, diabetes presents for left ear pain for the past 4 days. Her blood pressure and heart rate are moderately elevated. She has tenderness to pulling on the auricle and palpation of the tragus of the left ear. Inspection of ear canal notes that the canal is edematous and erythematous with clear discharge. There appears to be a possible effusion of the left TM but no significant erythema. Suspect presentation consistent with otitis externa with possible developing otitis media. Will cover with Cipro HC otic drops and a Medrol Dosepak for pain and inflammation. Advised patient to check her sugars regularly and adjust her insulin as needed while taking the steroids. We will also send a prescription for oral antibiotics to her pharmacy if her symptoms do not improve or worsen. She has a history of anaphylaxis to penicillin and Zithromax as interactions with her other medications so a prescription for clindamycin sent. She was given ENT follow-up information. Advised to follow up with the primary care doctor for re-evaluation. Usual and customary return precautions given prior to discharge. Medical Records Medical records reviewed: Yes I reviewed the patient's medical records. HPI General Mode of arrival: ambulatory. Date/Time Provider Initiated Documentation: 10/20/22 06:47. Limitations to Documentation: no limitations. Information obtained by: patient. HPI Narrative: Patient is a 52-year-old female with a history of morbid obesity, hypertension, hypothyroidism, GERD, diabetes presents for left ear pain for the past 4 days. She states she has recently noted decreased hearing and clear drainage from her left ear. She denies any recent swimming. She states she has been taking Tylenol without relief. She cannot take ibuprofen due to nosebleeding in the past. She denies any fever, headache, nasal congestion, sore throat, or neck pain. Related Data Home Medications Medication Instructions Recorded Confirmed famotidine 20 mg tablet 20 mg PO BID 01/09/20 12/23/20 glipizide 10 mg tablet, extended 10 mg PO BID 01/09/20 05/19/22 release 24 hr levothyroxine 25 mcg capsule 125 mcg PO DAILY 01/09/20 05/19/22 metformin 500 mg tablet 1,000 mg PO BID 01/09/20 05/19/22 oxybutynin chloride 5 mg tablet 5 mg PO TID 01/09/20 05/19/22 amitriptyline 50 mg tablet 50 mg PO HS 07/03/20 12/23/20 citalopram 40 mg tablet 40 mg PO DAILY 07/03/20 12/23/20 gabapentin 300 mg capsule 300 mg PO TID 07/03/20 12/23/20 lisinopril 2.5 mg tablet 2.5 mg PO DAILY 07/03/20 05/19/22 lovastatin 20 mg tablet 20 mg PO DAILY 07/03/20 12/23/20 montelukast 10 mg tablet 10 mg PO DAILY 07/03/20 05/19/22 sumatriptan succinate 50 mg tablet See Rx Instructions .Route .COMPLEX 07/03/20 12/23/20 nystatin 100,000 unit/gram topical 1 applic topical BID #60 grams 09/14/20 05/19/22 [place] [place] cyclobenzaprine 5 mg tablet 5 mg PO TID PRN #10 tabs 05/19/22 duloxetine 30 mg capsule,delayed 2 cap PO DAILY 05/19/22 05/19/22 release hydroxyzine HCl 25 mg tablet 25 mg PO DAILY 05/19/22 05/19/22 naproxen 500 mg tablet (Naprosyn) 500 mg PO BID PRN #14 tabs 05/19/22 clindamycin HCl 150 mg capsule 450 mg PO TID 7 days #63 caps 10/20/22 methylprednisolone 4 mg tablets in See Rx Instructions .Route 10/20/22 a dose pack .COMPLEX ear and dental infection 6 days #21 dose pk Previous Rx's Medication Instructions Recorded nystatin 100,000 unit/gram topical 1 applic topical BID #60 grams 09/14/20 powder (Nyamyc) cyclobenzaprine 5 mg tablet 5 mg PO TID PRN #10 tabs 05/19/22 naproxen 500 mg tablet (Naprosyn) 500 mg PO BID PRN #14 tabs 05/19/22 clindamycin HCl 150 mg capsule 450 mg PO TID 7 days #63 caps 10/20/22 methylprednisolone 4 mg tablets in See Rx Instructions .Route 10/20/22 a dose pack .COMPLEX ear and dental infection 6 days #21 dose pk Allergies Allergy/AdvReac Type Severity Reaction Status Date / Time bupropion [Wellbutrin] Allergy Severe Verified 06/14/21 10:35 lamotrigine [From Lamictal] Allergy Severe Verified 06/14/21 10:35 Penicillins Allergy Anaphylaxsi Unverified 06/14/21 10:35 s ibuprofen AdvReac Intermediate nose Verified 06/14/21 10:35 bleeding aspirin AdvReac Bleeding Unverified 06/14/21 10:35 General Stated Complaint: EarProblem LORI: 4 Review of Systems All systems reviewed & are unremarkable except as noted in HPI and below Constitutional Constitutional: Reports as per HPI, Denies chills and Denies fever(s) Eyes Eyes: Denies blurry vision ENT Ears, Nose, Mouth, and Throat: Denies dizziness, Reports otalgia, Denies sore throat and Denies throat swelling Cardiovascular Cardiovascular: Denies chest pain and Denies dyspnea Respiratory Respiratory: Denies cough and Denies dyspnea Gastrointestinal Gastrointestinal: Denies abdominal pain, Denies diarrhea and Denies vomiting Genitourinary Genitourinary: Denies hematuria and Denies dysuria Musculoskeletal Musculoskeletal: Denies back pain and Denies numbness Integumentary/Breasts Skin/Breast: Denies lesions and Denies rash Neurologic Neurologic: Denies dizziness, Denies localized weakness and Denies numbness Allergic/Immunologic Allergic/Immunologic: Denies throat swelling PFSH All Active Problems (Updated 10/20/22 @ 07:44 by Lore Newman DO) Left shoulder pain (Acute) Otitis externa (Acute) Otitis media (Acute) Morbidly obese (Acute) Yeast dermatitis (Acute) Skin ulcer of groin, limited to breakdown of skin (Acute) seconary to obesity and DM Medical History Diabetes GERD (gastroesophageal reflux disease) Hypertension Hypothyroidism Leg mass Migraine Multiple joint pain AMANDA (obstructive sleep apnea) Social History Smoking/Tobacco Use Status: Current every day Tobacco Type: cigarettes Smoking risk assessment performed?: Yes Alcohol Intake: former Drug use: Never Substance use type: does not use Current gender identity: female Do you feel safe at home: Yes Do you feel safe in your relationship?: Yes Exam Const General: cooperative, healthy appearing and no acute distress HENMT Head: normal to inspection Ears: hearing grossly normal bilaterally, external ears normal, EAC abnormal EAC tenderness on the left and otic discharge clear on the left and TM abnormal wth effusion serous on the left General nose exam: external nose normal Mouth: oral mucosae normal Throat: posterior oropharynx normal Eyes General: appearance normal, both eyes and all related structures Neck Neck: normal visual inspection and lymphadenopathy left anterior cervical Resp Effort & Inspection: normal respiratory effort and able to speak in complete sentences Cardio Rate: regular rate Skin General skin exam: no rashes or lesions noted Neuro General: patient alert, patient awake and patient oriented x3 Motor: muscle tone normal throughout Extrem General: normal to inspection and full ROM Psych Appearance: grossly normal Affect: normal affect Course Vital Signs Vital signs: Vital Signs Temperature 98.2 F 10/20/22 06:33 Pulse 93 H 10/20/22 06:33 Respiratory Rate 16 10/20/22 06:33 Pulse Oximetry 99 10/20/22 06:33 Temperature 98.2 F 10/20/22 06:33 Temperature Source Oral 10/20/22 06:33 Pulse 93 H 10/20/22 06:33 Respiratory Rate 16 10/20/22 06:33 Respiratory Effort 10/20/22 06:36 Blood Pressure 146/79 H 10/20/22 06:38 Blood Pressure Position Sitting 10/20/22 06:33 Pulse Oximetry 99 10/20/22 06:33 Oxygen Delivery Method Room Air 10/20/22 06:33 Oxygen Flow Rate 0 10/20/22 06:33 Pain Level 10 10/20/22 06:36
== END 2022-10-20 08:03 | disposition home or self-care (01) ==
PROVIDERS: Emergency Provider Physician Assistant; PCP Nurse Practitioner Family
DX: H66.92 Otitis media, unspecified, left ear (principal); H60.92 Unspecified otitis externa, left ear; I10 Essential (primary) hypertension; E11.9 Type 2 diabetes mellitus without complications; E03.9 Hypothyroidism, unspecified; Z79.84 Long term (current) use of oral hypoglycemic drugs; Z79.899 Other long term (current) drug therapy
CPT/HCPCS: 99283; 99284

== ENCOUNTER 2023-01-23 15:49 | Outpatient (REF) | payer MEDICAID, SELFPAY ==
[2023-01-23 16:34] LABS: ALT 30 U/L (14-59); AST 12 U/L (15-37); Albumin 3.7 g/dL (3.4-5.0); Alkaline Phosphatase 199 U/L (46-116); Anion Gap 8.3 mmol/L (3-11); BUN 9 mg/dL (7-18); Bilirubin, Total 0.2 mg/dL (0.2-1.0); CO2 28.7 mmol/L (21.0-32.0); CREATININE 0.6 mg/dL (0.55-1.02); Calcium 9.2 mg/dL (8.5-10.1); Chloride 101 mmol/L (98-107); Estimated GFR 107.93 (mL/min/1.73m2); Glucose 212 mg/dL (74-106); Potassium 4.5 mmol/L (3.5-5.1); Sodium 138 mmol/L (136-145); TSH 0.94 uIU/mL (0.36-3.74); Total Protein 7.1 g/dL (6.4-8.2)
[2023-01-23 16:41] LABS: Hemoglobin A1C 9.1 % (<5.7)
[2023-01-23 17:26] LABS: COMMENT (LAB VIEW ONLY) 66.95 mg/dL; Microalb ug/mg Crea 7.8 ug/mg Cr
[2023-01-25 09:58] LABS: Cyclic Citrullinated Peptide <2.5 U/mL (<5.0)
[2023-01-25 18:02] LABS: Fructosamine 285 mcmol/L (200 - 285)
== END 2023-01-23 15:50 | disposition home or self-care (01) ==
LOC: LBN 15:49
PROVIDERS: PCP Nurse Practitioner Family; Visit Provider Internal Medicine Endocrinology, Diabetes & Metabolism
DX: E11.65 Type 2 diabetes mellitus with hyperglycemia (principal)
CPT/HCPCS: 80053; 82533; 86200; 82043; 82570; 82985; 83036; 84443

== ENCOUNTER 2023-02-11 01:17 | Outpatient (CLI) | payer MEDICAID, SELFPAY ==
--- NOTE | 2023-02-11 | DI.MAMMO_ITS ---
Exam(s) MAMMO SCREENING EXAM: MAMMO SCREENING CLINICAL HISTORY: SCREENING, Z12.39 TECHNIQUE: Bilateral full field digital CC and MLO mammographic images were obtained with 3D tomosyn thesis and utilizing computer aided detection (CAD). COMPARISON: Available for comparison. FINDINGS: Masses/Architectural Distortion: None seen. Microcalcifications: No suspicious pleomorphic-type are seen. Skin Thickening/Nipple Retraction: None. IMPRESSION: 1. No significant interval change with no specific features of malignancy noted. 2. Unless there is more urgent need, screening mammography is recommended, as per [employer] guidelines. BI-RADS Category 1 - Negative Breast Density - Category B - Scattered areas of fibroglandular density Breast density category C or D implies that the patient has dense breast tissue. Dense breast tissue is very common and is not abnormal but dense breast tissue can make it harder to find cancer on a ma mmogram. Also, dense breast tissue may increase their breast cancer risk. This information about the result of the mammogram report was provided to the patient to raise their awareness. Use this report when you speak with the patient about their risks for breast cancer, which includes their family hist ory. At that time, you may recommend for more screening tests (Ultrasound or MRI) as they might be us eful based on their risk. A negative radiographic report should not delay biopsy if a dominant or clinically suspicious mass is present. Up to ten percent of cancers are not identified on mammography. A negative report may reinforce clinical impression. Adenosis and dense breasts may obscure an underlying neoplasm. False positive reports average 6 to 10%. Patient will receive a letter notifying them of these results.
== END 2023-02-11 01:37 ==
LOC: DI 01:17
PROVIDERS: PCP Nurse Practitioner Family; Visit Provider Physician Assistant
DX: Z12.31 Encounter for screening mammogram for malignant neoplasm of breast (principal)
CPT/HCPCS: 77063; 77067

== ENCOUNTER 2023-06-26 10:23 | Outpatient (CLI) | payer MEDICAID, SELFPAY ==
[2023-06-26 10:19] LABS: Hemoglobin A1C 8.4 % (<5.7)
[2023-06-26 10:22] LABS: ALT 25 U/L (14-59); AST 10 U/L (15-37); Albumin 3.5 g/dL (3.4-5.0); Alkaline Phosphatase 173 U/L (46-116); Anion Gap 6.5 mmol/L (3-11); BUN 14 mg/dL (7-18); Bilirubin, Total 0.4 mg/dL (0.2-1.0); CO2 29.5 mmol/L (21.0-32.0); CREATININE 0.8 mg/dL (0.55-1.02); Calcium 9.7 mg/dL (8.5-10.1); Chloride 100 mmol/L (98-107); Estimated GFR 88.05 (mL/min/1.73m2); Glucose 181 mg/dL (74-106); Potassium 4.2 mmol/L (3.5-5.1); Sodium 136 mmol/L (136-145); Total Protein 7.6 g/dL (6.4-8.2)
[2023-06-27 18:53] LABS: Fructosamine 257 mcmol/L (200 - 285)
[2023-06-27 21:33] LABS: C-Peptide 4.7 ng/mL (1.1 - 4.4)
== END 2023-06-26 10:24 | disposition home or self-care (01) ==
LOC: LBO 10:23
PROVIDERS: PCP Physician Assistant; Visit Provider Internal Medicine Endocrinology, Diabetes & Metabolism
DX: E11.65 Type 2 diabetes mellitus with hyperglycemia (principal)
CPT/HCPCS: 36415; 80053; 82985; 83036; 84681

== ENCOUNTER 2023-06-26 16:11 | Outpatient (REF) | payer MEDICAID, SELFPAY ==
[2023-06-26 18:27] LABS: COMMENT (LAB VIEW ONLY) < 13.00 mg/dL
== END 2023-06-26 16:12 | disposition home or self-care (01) ==
LOC: LBN 16:11
PROVIDERS: PCP Physician Assistant; Visit Provider Internal Medicine Endocrinology, Diabetes & Metabolism
DX: E11.65 Type 2 diabetes mellitus with hyperglycemia (principal)
CPT/HCPCS: 82043; 82570

== ENCOUNTER 2023-07-25 08:56 | Day surgery (SDC) | payer MEDICAID, SELFPAY ==
--- NOTE | 2023-07-24 19:49 | PDOC.DSDIS_ITS ---
Date of service: 07/25/23 Time of Service: 12:46 Discharge Plan Disposition Patient Disposition: Home Condition: Good Discharge Details Reason For Visit: Screening colonoscopy Attending Provider: Dom William Primary Care Provider: Long Erickson Home Meds and New Rx's Prescriptions: Continued nystatin [Nyamyc] 100,000 unit/gram powder 1 applic topical BID Qty: 60 12RF Rx Instructions: apply to affected area BID for 7days. use prn for yeast dermatitis Trulicity 3 mg/0.5 mL pen injector 3 mg subcut QWEEK lisinopril 5 mg tablet 5 mg PO DAILY levothyroxine 137 mcg capsule 137 mcg PO DAILY atorvastatin 40 mg tablet 40 mg PO DAILY pregabalin 100 mg capsule 100 mg PO TID metformin 500 mg tablet 500 mg PO BID Humalog U-100 Insulin 100 unit/mL cartridge 6 unit subcut TID PRN duloxetine 60 mg capsule,delayed release(DR/EC) 60 mg PO BID hydroxyzine HCl 25 mg tablet 25 mg PO DAILY Patient Comments: TAKE 1-2 TABLETS BY MOUTH AT NIGHT NEEDED FOR SLEEP glipizide 10 mg Tablet Extended Release 24hr 10 mg PO BID famotidine 20 mg Tablet 20 mg PO BID oxybutynin chloride 5 mg Tablet 5 mg PO TID amitriptyline 50 mg tablet 50 mg PO HS Patient Comments: TK 1 T PO D HS montelukast 10 mg tablet 10 mg PO DAILY Patient Comments: TK 1 T PO D FOR ASTHMA lovastatin 20 mg tablet 20 mg PO DAILY Patient Comments: TK 1 T PO D WITH ZARA MEAL sumatriptan succinate 50 mg tablet See Rx Instructions .ROUTE .COMPLEX PRN Patient Comments: TK 1 T PO AOS OF MIGRAINE. MAY REPEAT IN 2 H FOR 1 Rx Instructions: 50 mg orally PRN; Discontinued polyethylene glycol 3350 17 gram/dose powder 238 g PO ONCE Qty: 238 0RF Rx Instructions: take per colonoscopy instructions bisacodyl [Dulcolax (bisacodyl)] 5 mg tablet,delayed release (DR/EC) 5 mg PO ONCE Qty: 4 0RF Rx Instructions: take per colonoscopy instructions Discharge Instructions Instructions: Colorectal Polyps (GEN) Additional Instructions: Shane, we were able to complete your colonoscopy today without any difficulty. I removed 4 portions of tissue. 3 of these seem fairly consistent with polyps. The other might be a polyp, or just some inflamed lymphoid tissue. Regardless, I will send them all off for pathology for complete analysis. Once I have the results of that testing I will be in touch with my recommendations for your next colonoscopy 1. If tolerated, consume a soft, low fiber diet for 1-2 days. 2[address] Do not drive, drink alcohol, operate machinery, make critical decisions, or do activities that require coordination or balance for 24 hours. 3. Because air was put into your colon during the procedure, expelling air from your rectum (passing gas or farting) is normal. 4. You may not have a bowel movement for 1-3 days because of the colonoscopy prep. This is normal. 5. Go directly to the emergency room if you notice any of the following: Develop chills (warm to touch), or if you have a thermometer and your temperature is above 101 Difficulty breathing or difficultly swallowing Persistent vomiting Severe abdominal pain, other than gas cramps Severe chest pain Black, tarry stools Any bleeding ? exceeding one tablespoon 6. Call your physician if the site where your intravenous was started becomes red, swollen, painful, and warm to touch. 7. Your physician has reviewed your pre-procedure medications. Please continue t o take those medications as previously ordered. You will be given specific information/education regarding any changes to your medications before leaving. Activity:: Activity as Tolerated Diet:: As Tolerated Discharge Orders Discharge Orders: Discharge Order (Routine); Ordered 07/24/23 Ordered By: Dom William DS: Diagnosis Discharge Diagnosis (1) Screen for colon cancer: Status: Acute Asessment and Plan: Follow-up on polypectomy results
--- NOTE | 2023-07-24 19:51 | COLE_ITS ---
Date of service: 07/25/23 Time of Service: 12:48 Colonoscopy Report Date of procedure: 07/25/23 Pre-op diagnosis general: Screening colonoscopy Post-op diagnosis procedure note: other (Colorectal polyps) Procedure: Colonoscopy with polypectomy Surgeon: Dom William Anesthesia Type: General:No Airway Estimated blood loss (mL): 10 Pathology: other (0.25 cm rectal polyp, 0.25 cm polyps at 20 cm from the anal verge x2, ascending colon polyp) Complications: None Disposition: same day Indications: Nedra is a 53 year old woman who needs her first screening colonoscopy Prep: Miralax/Dulcolax Procedure Start Time: 12:10 Procedure End Time: 12:34 Retraction Time: 18 Findings: 0.25 cm rectal polyp, 0.25 cm polyps at 20 cm from the anal verge x2, ascending colon polyp Procedure Description: After the induction of monitored anesthetic care, and with the patient in left lateral decubitus position, I began by performing an external anorectal exam.? Perineum and skin were normal, as was the anal verge.? There was no evidence of external hemorrhoids.? Next, I performed a digital rectal exam.? I did not appreciate any abnormal findings.? Next, I advanced a colonoscope into the rectal vault.? I performed retroflexion.? This appeared normal.? In the upper portion of the rectal vault was a 0.25 cm polyp. I removed this with cold forceps. There was minimal bleeding. Using insufflation, I then advanced the colonoscope beyond the rectal folds and into the sigmoid colon before advancing towards the cecum.? The scope was noted to be in the cecum by identification of the ileocecal valve and appendiceal orifice.? I then began withdrawing the colonoscope using repeated irrigation as necessary for full evaluation of the colonic mucosa. Just beyond the upper portion of the cecum, and the ascending colon proximal to the hepatic flexure with an abnormal portion of tissue along one of the colon how strep. Some features of it appeared consistent with a polyp. I would estimate it to be about 0.5 cm in its greatest dimension. I removed it with energized snare polypectomy. There was minimal bleeding. Around 20 cm from the anal verge were 2 other small polyps. Both were less than 0.25 cm. Both were sessile, and I removed both of these with cold forceps. There was minimal bleeding here. Once the scope was withdrawn to the level of the rectum, great care was taken to examine portions of the rectal folds.? Finally, the scope was withdrawn and the patient was brought to the same-day surgery recovery unit as the anesthetic wore off. ?The findings and instructions were shared with the patient prior to discharge. [place] Bowel Prep [place] Bowel Prep Right Colon: 2 Left Colon: 2 Transverse Colon: 3 Total Score: 7
[2023-07-25 10:17] VITALS: BP 127/70; PULSE 79; RESP 16; TEMP 36.3; O2SAT 98
[2023-07-25] MEDS: Lactated Ringers 1,000 ML 80 ML IV (10:39)
--- NOTE | 2023-07-25 11:53 | W.ANESPRE ---
General Info Date of Service Date Performed: 07/25/23 Height: 5 ft 3 in Weight: 116.7 kg Body Mass Index (BMI): 45.6 Surgical Procedure: Operation Date: 07/25/23 11:20 Proposed Procedure Side Surgeon bharat William MD Meds Allergies and Home Medications Allergies Allergy/AdvReac Type Severity Reaction Status Date / Time bupropion [Wellbutrin] Allergy Severe Verified 07/25/23 10:14 lamotrigine [From Lamictal] Allergy Severe Verified 07/25/23 10:14 Sulfa (Sulfonamide Allergy Intermediate hives Verified 07/25/23 10:14 Antibiotics) Penicillins Allergy Anaphylaxsi Unverified 07/25/23 10:14 s ibuprofen AdvReac Intermediate nose Verified 07/25/23 10:14 bleeding aspirin AdvReac Bleeding Unverified 07/25/23 10:14 Home Medication Medication Instructions Recorded famotidine 20 mg tablet 20 mg PO BID 01/09/20 glipizide 10 mg tablet, extended 10 mg PO BID 01/09/20 release 24 hr oxybutynin chloride 5 mg tablet 5 mg PO TID 01/09/20 amitriptyline 50 mg tablet 50 mg PO HS 07/03/20 lovastatin 20 mg tablet 20 mg PO DAILY 07/03/20 montelukast 10 mg tablet 10 mg PO DAILY 07/03/20 nystatin 100,000 unit/gram topical 1 applic topical BID #60 grams 09/14/20 powder ([facility]) hydroxyzine HCl 25 mg tablet 25 mg PO DAILY 05/19/22 atorvastatin 40 mg tablet 40 mg PO DAILY 05/01/23 dulaglutide 3 mg/0.5 mL 3 mg subcut QWEEK 05/01/23 subcutaneous pen injector (Trulicity) insulin lispro 100 unit/mL 6 unit subcut TID PRN 05/01/23 subcutaneous cartridge (Humalog U-100 Insulin) levothyroxine 137 mcg capsule 137 mcg PO DAILY 05/01/23 lisinopril 5 mg tablet 5 mg PO DAILY 05/01/23 metformin 500 mg tablet 500 mg PO BID 05/01/23 pregabalin 100 mg capsule 100 mg PO TID 05/01/23 duloxetine 60 mg capsule,delayed 60 mg PO BID 07/17/23 release sumatriptan succinate 50 mg tablet See Rx Instructions .Route 07/17/23 .COMPLEX PRN Current Visit Medications: Current Medications Generic Name Dose Route Start Last Admin Trade Name Naseemq PRN Reason Stop Dose Admin Hyoscyamine Sulfate 0.125 mg 07/24/23 19:52 Hyoscyamine 0.125 Mg Sl/Oral/Chew SL 08/23/23 19:51 DIRECTED PRN Ringer's Solution 1,000 mls @ 80 mls/hr 07/25/23 06:00 07/25/23 10:39 IV 08/23/23 23:59 80 mls/hr INFUSION DIAZ Administration IV Miscellaneous Supplies 1 each 07/25/23 06:00 Iv Access IV 08/23/23 23:59 DIRECTED DIAZ Ondansetron HCl 4 mg 07/24/23 19:52 Ondansetron 4 Mg/2 Ml Vial IVP 08/23/23 19:51 Q4H PRN PRN Nausea / Vomiting Sodium Chloride 0 ml 07/25/23 06:00 Normal Saline Flush 10 Ml Syr IV 08/23/23 23:59 PRN PRN Sodium Chloride 0 ml 07/25/23 06:00 Normal Saline 10 Ml Vial IJ 08/23/23 23:59 DIRECTED PRN Sterile Water 0 ml 07/25/23 06:00 Water,Injection,Sterile 10 Ml Vial IJ 08/23/23 23:59 DIRECTED PRN PFSH Active Problems Active Problems: Problem Status Onset Code Screen for colon cancer Z12.11 Myofascial pain syndrome M79.18 Left shoulder pain M25.512 Morbidly obese E66.01 Yeast dermatitis B37.2 Skin ulcer of groin, limited to breakdown of skin L98.491 Medical History Medical History PTSD (post-traumatic stress disorder) Major depressive disorder, recurrent episode Insomnia Nicotine dependence Diabetic neuropathy AMANDA (obstructive sleep apnea) Hypertension GERD (gastroesophageal reflux disease) Migraine Leg mass Multiple joint pain Hypothyroidism Diabetes Surgical History Surgical History History of thyroid surgery Tobacco Smoking/Tobacco Use Status: Current every day Tobacco Type: cigarettes Alcohol Alcohol Intake: former Substance Use Substance use: Never Substance use type: does not use Vital Signs and Lab Results Vital Signs Most Recent Vital Signs in EMR: Most Recent Vital Signs Temp Pulse Resp BP Pulse Ox 36.3 C L 79 16 127/70 98 07/25/23 10:17 07/25/23 10:17 07/25/23 10:17 07/25/23 10:17 07/25/23 10:17 Lab Results Blood Type / Crossmatch: No Data to Display Complete Blood Count: No Data to Display Complete Metabolic Panel: Sodium 136 mmol/L (136-145) 06/26/23 09:45 Potassium 4.2 mmol/L (3.5-5.1) 06/26/23 09:45 Chloride 100 mmol/L (98-107) 06/26/23 09:45 Carbon Dioxide 29.5 mmol/L (21.0-32.0) 06/26/23 09:45 BUN 14 mg/dL (7-18) 06/26/23 09:45 Creatinine 0.8 mg/dL (0.55-1.02) 06/26/23 09:45 Est GFR (CKD-EPI 2020) 88.05 (mL/min/1.73m2) 06/26/23 09:45 Calcium 9.7 mg/dL (8.5-10.1) 06/26/23 09:45 Albumin 3.5 g/dL (3.4-5.0) 06/26/23 09:45 Glucose 181 mg/dL (74-106) H 06/26/23 09:45 Hemoglobin A1c 8.4 % (<5.7) H 06/26/23 09:45 Liver Function Panel: Alanine Aminotransferase (ALT/SGPT) 25 U/L (14-59) 06/26/23 09:45 Aspartate Amino Transf (AST/SGOT) 10 U/L (15-37) L 06/26/23 09:45 Coagulation Panel: No Data to Display Cardiac Panel: No Data to Display Arterial Blood Gas: No Data to Display Venous Blood Gas: No Data to Display Pancreas Panel: No Data to Display Thyroid Panel: No Data to Display Infectious Disease: No Data to Display Blood Cultures: No Data to Display Toxicology Panel: No Data to Display Panel: No Data to Display Anesthesia Assessment and Plan Anesthesia History Personal History: No History of Anesthesia Complications Family History: No Family History of Anesthesia Complications Exercise Tolerance Exercise Tolerance: Metabolic Equivalents>4 Cardiac & Pulmonary Exam Cardiac Exam: Normal S1/S2 Heart Sounds Pulmonary Exam: Clear Bilateral Breath Sounds Implantable Cardiac Device Does patient have a Pacemaker or an ICD?: No Airway Exam Known Difficult Airway: No Mallampati Class: 2 Mouth Opening: Normal (> 3cm) Thyromental Distance: Greater than 3 cm Neck Range of Motion: Full ROM Neck Circumference: Thick Teeth Condition: Edentulous ASA Classification ASA Score: ASA 3 Emergency Case?: No NPO Status NPO Status: NPO Clears >2 hours, Solids >8 hours Status Status: Not Relevant due to Medical History Anesthesia Plan Resuscitation Status: Full Code Anesthesia Technique: General Anesthesia Airway Planned: Natural Airway Monitors Used: Standard Monitors
[2023-07-25 11:56] VITALS: BMI 45.6
--- NOTE | 2023-07-25 12:14 | BOWEL_PTH ---
PATIENT: Nedra Way LOC: [facility] U#:[id number] AGE/SX: 53/F ROOM: RE07/25/[address]: Dom William MD : 1970 BED: DIS: 07/25/2023 SPEC #: [id number] RECD: 07/25/23 18:23 STATUS: DIPIKA RE #: [id number] JULISA: 07/25/23 12:[address]: Dom William DEPT: Surgical Specimen RECD BY: Kalina Greenwood ENTERED: 07/25/23 18:24 SP TYPE: Bowel OTHR DR: Long Erickson Tissues: 1 - BIOPSY BOWEL 2 - BIOPSY BOWEL 3 - BIOPSY BOWEL Procedures: GROSS AND MICRO LEVEL 4 Comments: [id number]
[2023-07-25 12:38] VITALS: BP 104/58; PULSE 76; RESP 18; TEMP 36.1; O2SAT 98
--- NOTE | 2023-07-25 12:47 | W.ANESPOSTOP ---
Postoperative Evaluation Date, Time and Location Date Performed: 07/25/23 Time Performed: 12:47 Patient Location: Day Surgery Unit Vital Signs Most Recent Imported Vital Signs: Most Recent Vital Signs Temp Pulse Resp BP Pulse Ox 36.1 C L 76 18 104/58 L 98 07/25/23 12:38 07/25/23 12:38 07/25/23 12:38 07/25/23 12:38 07/25/23 12:38 Pain Score Most Recent Pain Score: Most Recent Pain Score Pain Level 0 07/25/23 12:38 Assessment Mental Status: Awake (Alert & Oriented to Patient Baseline) Airway and Respiratory Function: Patent airway with normal (patient baseline) respiratory exam Cardiovascular Function: Hemodynamically Stable Hydration Status: Adequately Hydrated Nausea & Vomiting: No Nausea or Vomiting Pain: Pt. Denies Any Pain Peripheral Nerve Block: Patient did not receive a nerve block
[2023-07-25 13:14] VITALS: BP 139/69; PULSE 75; RESP 17; TEMP 36.4; O2SAT 99
== END 2023-07-25 13:26 | disposition home or self-care (01) ==
LOC: SUR 08:57
PROVIDERS: PCP Physician Assistant; Visit Provider Surgery
PROC: 0DJD8ZZ Inspection of Lower Intestinal Tract, Via Natural or Artificial Opening Endoscopic (ICD-10-PCS; CPT 45378; principal; 2023-07-25 11:15)
DX: Z12.11 Encounter for screening for malignant neoplasm of colon (principal); K63.5 Polyp of colon
CPT/HCPCS: 45385; 45380; 88305; J2001

== ENCOUNTER 2023-11-01 14:50 | Outpatient (REF) | payer MEDICAID, SELFPAY ==
[2023-11-01 15:46] LABS: ALT 26 U/L (14-59); AST 14 U/L (15-37); Albumin 3.5 g/dL (3.4-5.0); Alkaline Phosphatase 171 U/L (46-116); Anion Gap 11.9 mmol/L (3-11); BUN 10 mg/dL (7-18); Bilirubin, Total 0.4 mg/dL (0.2-1.0); CO2 25.1 mmol/L (21.0-32.0); CREATININE 0.8 mg/dL (0.55-1.02); Calcium 9.4 mg/dL (8.5-10.1); Calculated LDL 104 mg/dL (<100); Chloride 99 mmol/L (98-107); Cholesterol 171 mg/dL (<200); Estimated GFR 88.05 (mL/min/1.73m2); Glucose 335 mg/dL (74-106); HDL Cholesterol 37 mg/dL (40-60); Potassium 4.8 mmol/L (3.5-5.1); Sodium 136 mmol/L (136-145); TSH 1.82 uIU/mL (0.36-3.74); Total Protein 6.9 g/dL (6.4-8.2); Triglyceride 151 mg/dL (<150)
[2023-11-01 16:51] LABS: Hemoglobin A1C 8.8 % (<5.7)
== END 2023-11-01 14:51 | disposition home or self-care (01) ==
LOC: NCHCN 14:50
PROVIDERS: PCP Physician Assistant; Visit Provider Physician Assistant
DX: E03.9 Hypothyroidism, unspecified (principal); I10 Essential (primary) hypertension
CPT/HCPCS: 80053; 80061; 83036; 84443

== ENCOUNTER → 2024-02-27 04:39 | Outpatient (CLI) | payer MEDICAID, SELFPAY ==
--- NOTE | 2024-02-27 | DI.MAMMO_ITS ---
Exam(s) MAMMO SCREENING EXAM: MAMMO SCREENING CLINICAL HISTORY: SCREENING, Z12.31. TECHNIQUE: Bilateral full field digital CC and MLO mammographic images were obtained with 3D tomosyn thesis and utilizing computer aided detection (CAD). COMPARISON: Prior mammograms were reviewed. FINDINGS: There has been no significant change in the appearance and distribution of the fibroglandular tissue. There are no CAD designations. There are no new spiculated masses nor malignant appearing microcalcification groups. There is no significant architectural distortion nor skin thickening-retraction. IMPRESSION: No radiographic evidence of malignancy. BI-RADS Category 1 - Negative Breast Density - Category B - Scattered areas of fibroglandular density Breast density Category C or D implies that the patient has dense breast tissue. Dense breast tissue can make it harder to find cancer on a mammogram. Dense breast tissue is also associated with an incr eased risk of breast cancer. This information about the result of the mammogram report was provided to the patient to raise their awareness. Use this report when you speak with the patient about their risks for breast cancer, which includes their family history. At that time, you may recommend additional screening tests (Ultrasoun d or MRI) as these tests may add significant information. A negative radiographic report should not delay biopsy if a dominant or clinically suspicious mass is present. Up to ten percent of cancers are not identified on mammography. A negative report may reinforce clinical impression. Adenosis and dense breasts may obscure an underlying neoplasm. False positive reports average 6 to 10%. Patient will receive a letter notifying them of these results.
== END ==
PROVIDERS: PCP Physician Assistant; Visit Provider Physician Assistant
DX: Z12.31 Encounter for screening mammogram for malignant neoplasm of breast (principal)
CPT/HCPCS: 77063; 77067

== ENCOUNTER 2024-09-11 00:13 | Outpatient (CLI) | payer MEDICAID, SELFPAY ==
--- NOTE | 2024-09-11 13:08 | DI.CTLCSR_ITS ---
Exam(s) CT CHEST LUNG CANCER SCREEN EXAM: CT CHEST LUNG CANCER SCREEN CLINICAL HISTORY: F17.210 NICOTINE DEPENDENCE TECHNIQUE: Imaging Protocol: Axial computed tomography images with coronal and sagittal reformatted images were created and reviewed. Lung Computer Aided Detection (CAD) was utilized. COMPARISON: No exams were available for comparison FINDINGS: Tracheobronchial tree: Patent where visualized. No bronchiectasis. Pulmonary parenchyma: No consolidation or dominant measurable mass. No architectural distortion. Lung Nodules: None. Mediastinum and Lalitha: No dominant adenopathy or fluid collection. The esophagus is unremarkable. Lymph nodes: Unremarkable. Pleura: No effusion or pneumothorax. Heart: The heart is not dilated. No coronary artery calcifications are seen. No pericardial effusion . Aorta: Thoracic aorta non-dilated.Minimal atherosclerotic calcification is present. Upper abdomen: Unremarkable. Soft Tissues: Unremarkable. Bones: Within normal limits. IMPRESSION: No suspicious pulmonary nodules. Lung RADS Cat 1 - Negative: No nodules and definitely benign nodules Lung-RADS 1.0 CATEGORIES: Category 0 - Prior chest CT exam(s) being located for comparison. Category 1 - Annual screening in 12 months. No nodules or definitely benign nodules. Category 2 - Annual screening in 12 months. Benign appearance. Nodules with low likelihood of becomin g active cancer. Category 3 - 6-month follow-up. Probably benign. Short-term follow-up suggested. Nodules with low lik elihood of becoming active cancer. Category 4A - 3-month follow-up and CT/PET if >8 mm in size. Suspicious finding. Findings which requi re additional testing. Category 4B - Findings which require additional testing and tissue sampling. Suspicious finding. Category 4X - Category 3 or 4 nodules with additional features or imaging findings that increases the suspicion of malignancy. Modifier S- Potentially clinically significant finding. (Non lung cancer) RADIATION DOSE DELIVERED: 125.76mGy.cm Total DLP 125.76mGy.cmTotal DLP DATA REPOSITORY: All CT scans at this facility are submitted to the National Radiology Data Registry (NRDR) Dose Index Registry (DIR) with the [employer] (A[employer]). RADIATION OPTIMIZATION: All CT scans at this facility use at least one of these dose optimization te chniques: automated exposure control; mA and/or kV adjustment per patient size (includes targeted exa ms where dose is matched to clinical indication); or iterative reconstruction.
== END 2024-09-11 00:33 ==
LOC: DI 00:13
PROVIDERS: PCP Physician Assistant; Visit Provider Physician Assistant
DX: Z12.2 Encounter for screening for malignant neoplasm of respiratory organs (principal); F17.210 Nicotine dependence, cigarettes, uncomplicated
CPT/HCPCS: 71271

== ENCOUNTER 2024-11-30 13:46 | Emergency (ER) | payer MEDICAID, SELFPAY ==
[2024-11-30 13:58] VITALS: BP 126/73; PULSE 83; RESP 15; TEMP 36.5; O2SAT 98
--- NOTE | 2024-11-30 16:32 | W.ED.GENAD ---
Discharge Plan Disposition Patient Disposition: Home Condition: Stable Discharge Details Clinical Impression: Calcific tendinitis of left shoulder Primary Care Provider: Long Erickson ED Provider: Ruben Hough Home Meds and New Rx's Prescriptions: Continued nystatin [Nyamyc] 100,000 unit/gram powder 1 applic topical BID Qty: 60 12RF Rx Instructions: apply to affected area BID for 7days. use prn for yeast dermatitis lisinopril 5 mg tablet 5 mg PO DAILY levothyroxine 137 mcg capsule 137 mcg PO DAILY atorvastatin 40 mg tablet 40 mg PO DAILY pregabalin 100 mg capsule 100 mg PO TID metformin 500 mg tablet 500 mg PO BID Humalog U-100 Insulin 100 unit/mL cartridge 6 unit subcut TID PRN duloxetine 60 mg capsule,delayed release(DR/EC) 60 mg PO BID hydroxyzine HCl 25 mg tablet 25 mg PO DAILY Patient Comments: TAKE 1-2 TABLETS BY MOUTH AT NIGHT NEEDED FOR SLEEP tizanidine 4 mg tablet 4 mg PO DAILY Patient Comments: TAKE ONE TABLET BY MOUTH EVERY EVENING NEEDED FOR PAIN AND SPASMS glipizide 10 mg Tablet Extended Release 24hr 10 mg PO BID famotidine 20 mg Tablet 20 mg PO BID oxybutynin chloride 5 mg Tablet 5 mg PO TID amitriptyline 50 mg tablet 50 mg PO HS Patient Comments: TK 1 T PO D HS montelukast 10 mg tablet 10 mg PO DAILY Patient Comments: TK 1 T PO D FOR ASTHMA lovastatin 20 mg tablet 20 mg PO DAILY Patient Comments: TK 1 T PO D WITH ZARA MEAL sumatriptan succinate 50 mg tablet See Rx Instructions .ROUTE .COMPLEX PRN Patient Comments: TK 1 T PO AOS OF MIGRAINE. MAY REPEAT IN 2 H FOR 1 Rx Instructions: 50 mg orally PRN; Discharge Instructions Instructions: Calcific Tendinopathy of the Shoulder (DC), Shoulder Pain ED Additional Instructions: You were seen in the emergency department for the calcific tendinitis of your left shoulder. Please follow-up with physical therapy have placed a referral for you, you need to seek a referral from your regular doctor for an outpatient visit on a nonurgent basis to orthopedics. In the meantime please continue your Lyrica and muscle relaxer, add 1000 mg of Tylenol every 6 hours for the next week or 2. Use the provided Voltaren gel to the left shoulder 2-3 times per day for pain relief, please return for severe increase in swelling of the arm or complete numbness and temperature changes distal to the shoulder. Stand Alone Forms: Physical Therapy Referral Referrals: [facility] [Provider Group] Long Erickson [Primary Care Provider] - Discharge Data Discharge Date/Time-TO BE ENTERED AT DEPARTURE: 11/30/24 18:05 HPI General Date/Time Provider Initiated Documentation: 11/30/24 14:17. HPI Narrative: 54 year-old female presents to ED today by POV/ambulating with a chief complaint of bilateral shoulder pain R > L, feels it may be a flare-up of fibromyalgia, with onset over the past several weeks, worse over the past 2 days. Quality described as sharp stabbing pain in L shoulder with raising it up, no radiation to numbness/tingling, unilateral arm swelling, skin changes, redness or warmth to joint, recent trauma, repetitive motion activities. Severity is described as 10/10. Palliating factors include takes Lyrica and Tizanidine. Provoking factors include nothing specific. Patient not anticoagulated. Related Data Home Medications ?Medication ?Instructions ?Recorded ?Confirmed famotidine 20 mg tablet 20 mg PO BID 01/09/20 11/30/24 glipizide 10 mg tablet, extended 10 mg PO BID 01/09/20 11/30/24 release 24 hr oxybutynin chloride 5 mg tablet 5 mg PO TID 01/09/20 11/30/24 amitriptyline 50 mg tablet 50 mg PO HS 07/03/20 11/30/24 lovastatin 20 mg tablet 20 mg PO DAILY 07/03/20 11/30/24 montelukast 10 mg tablet 10 mg PO DAILY 07/03/20 11/30/24 nystatin 100,000 unit/gram topical 1 applic topical BID #60 grams 09/14/20 11/30/24 powder ([facility]) hydroxyzine HCl 25 mg tablet 25 mg PO DAILY 05/19/22 11/30/24 atorvastatin 40 mg tablet 40 mg PO DAILY 05/01/23 11/30/24 insulin lispro 100 unit/mL 6 unit subcut TID PRN 05/01/23 11/30/24 subcutaneous cartridge (Humalog U-100 Insulin) levothyroxine 137 mcg capsule 137 mcg PO DAILY 05/01/23 11/30/24 lisinopril 5 mg tablet 5 mg PO DAILY 05/01/23 11/30/24 metformin 500 mg tablet 500 mg PO BID 05/01/23 11/30/24 pregabalin 100 mg capsule 100 mg PO TID 05/01/23 11/30/24 duloxetine 60 mg capsule,delayed 60 mg PO BID 07/17/23 11/30/24 release sumatriptan succinate 50 mg tablet See Rx Instructions .Route 07/17/23 11/30/24 .COMPLEX PRN tizanidine 4 mg tablet 4 mg PO DAILY 11/30/24 11/30/24 Previous Rx's ?Medication ?Instructions ?Recorded nystatin 100,000 unit/gram topical 1 applic topical BID #60 grams 09/14/20 powder ([facility]) Allergies Allergy/AdvReac Type Severity Reaction Status Date / Time bupropion (Wellbutrin) Allergy Severe Unknown Verified 11/30/24 14:01 lamotrigine (From Lamictal) Allergy Severe Hives Verified 11/30/24 14:01 Sulfa (Sulfonamide Allergy Intermediate hives Verified 11/30/24 14:01 Antibiotics) Penicillins Allergy Anaphylaxsi Unverified 11/30/24 14:01 s ibuprofen AdvReac Intermediate nose Verified 11/30/24 14:01 bleeding aspirin AdvReac Bleeding Unverified 11/30/24 14:01 General Stated Complaint: Orthopedic LORI: 4 Review of Systems All systems reviewed & are unremarkable except as noted in HPI and below Exam Narrative Exam Narrative: GENERAL APPEARANCE: Well-nourished, non-toxic, awake and alert, atraumatic, no acute distress. SKIN: Warm, pink, dry, intact, without rashes/lesions/ulcerations. HEAD: Normocephalic, atraumatic, normal hair distribution for gender/age. EYES: Normal conjunctiva, no exudates on lids/lashes. ENT: Nares patent, no circumoral cyanosis, no facial swelling NECK: Supple, trachea midline, painless cervical ROM. LUNGS/CHEST: Lungs CTA bilaterally, non-labored respirations, normal A/P diameter, symmetrical expansion, no chest wall deformity HEART (CV/PV): Regular rate and rhythm without murmur, no peripheral edema, no JVD. ABDOMEN: Soft, non-distended, no guarding. MSK: Normal ROM, no swelling/deformity to bilateral UEs or LEs, moving all extremities without weakness, no cyanosis, spine midline without tenderness, normal curvature. NEURO: Mental Status AAOx4 - alert to person, place, time, events No facial droop, no forehead involvement. Motor: No focal weakness - strength 5/5 in bilateral UEs and LEs, proximal and distal, symmetric. Sensory: sensation intact to light touch globally. Gait normal: patient ambulated without ataxia into ED room. PSYCH: euthymic, cooperative, pleasant, appropriate speech Course Vital Signs Vital signs: Vital Signs Temperature 36.5 C 11/30/24 13:58 Pulse 83 11/30/24 13:58 Respiratory Rate 15 11/30/24 13:58 Blood Pressure 126/73 11/30/24 13:58 Pulse Oximetry 98 11/30/24 13:58 Temperature 36.5 C 11/30/24 13:58 Pulse 83 11/30/24 13:58 Respiratory Rate 15 11/30/24 13:58 Blood Pressure 126/73 11/30/24 13:58 Blood Pressure Position Sitting 11/30/24 13:58 Pulse Oximetry 98 11/30/24 13:58 Oxygen Delivery Method Room Air 11/30/24 13:58 Oxygen Flow Rate 0 11/30/24 13:58 Medical Decision Making This dictation utilizes [id number] dictation software and may contain unedited grammatical errors. 54 year-old female presents to ED today by POV/ambulating with a chief complaint of bilateral shoulder pain R > L, feels it may be a flare-up of fibromyalgia, with onset over the past several weeks, worse over the past 2 days. Quality described as sharp stabbing pain in L shoulder with raising it up, no radiation to numbness/tingling, unilateral arm swelling, skin changes, redness or warmth to joint, recent trauma, repetitive motion activities. Severity is described as 10/10. Palliating factors include takes Lyrica and Tizanidine. Provoking factors include nothing specific. Patients' medical history: Nicotine dependence, diabetic neuropathy, AMANDA, hypertension, GERD, migraine, multiple joint pain, fibromyalgia, morbid obesity. Family and social history: Current active smoker, denies EtOH or drug use, no exercise habits. Pertinent exam findings / vital signs include tenderness to the left shoulder without swelling or deformity, left radial pulse 2+, speeds positive, empty can positive in the left shoulder. Differential / pathologies of concern include fibromyalgia, sprain of shoulder, rotator cuff arthropathy, unlikely fracture. Diagnostic studies of: -XR L shoulder-no acute fracture seen, shows calcific tendinitis Interventions of: -1 g p.o. Tylenol, topical Voltaren gel. ED Course/Assessment/Plan: 54-year-old female with chronic fibromyalgia presents with left greater than right shoulder pain, she is seeking pain relief only, is neurovascularly intact in the left upper extremity, x-ray of the shoulder reveals calcific tendinitis, she had some positives on special tests of the shoulder for rotator cuff arthropathy, I recommend she seek a primary care referral to orthopedics to address her calcific tendinitis, I did provide her with Voltaren gel as well as Tylenol, she should continue her Lyrica and muscle relaxer, perform pendulum exercises, I did provide a PT referral for the patient and recommend she return for any signs of neurovascular compromise to the left upper extremity. Patient states she is not going to follow-up with PT. Findings not consistent with fracture, neurovascular compromise. Disposition of Calcific Tendintis of Left Shoulder. Patient verbalized understanding of the plan and return to ED criteria and engaged in shared decision making. Medical Records Medical records reviewed: Yes I reviewed the patient's medical records. Imaging Data Radiologic Study: Attestation: I personally reviewed and interpreted this imaging study as follows: Imaging: X-Ray Radiologist's impression: EXAM: XR SHOULDER LT COMPLETE 2+V CLINICAL HISTORY: L shoulder pain. TECHNIQUE: 2D digital imaging was performed. COMPARISON: CR XR SHOULDER LT COMPLETE 2+V from 12/23/2020 FINDINGS: Five views. No evidence acute fracture or dislocation nor diminution of the subacromial space. However, there is a 5 x 4 mm calcific density in the soft tissues just above the greater tuberosity consistent with calcific rotator cuff tendinitis. There are no degenerative changes evident in the glenohumeral and AC joints. Bone density normal. No osseous lesions. IMPRESSION: Findings are consistent with calcific rotator cuff tendinitis of the left shoulder. Quality:SDOH Health Related Social Needs: No Data to Display PFSH All Active Problems (Updated 11/30/24 @ 18:04 by Ruben R Hough, PA) Calcific tendinitis of left shoulder (Acute) Sessile serrated polyp of colon (Acute) X1 sessile, X3 hyperplastic Myofascial pain syndrome (Acute) Left shoulder pain (Acute) Morbidly obese (Acute) Yeast dermatitis (Acute) Skin ulcer of groin, limited to breakdown of skin (Acute) seconary to obesity and DM Medical History (Updated 11/30/24 @ 18:04 by GARDENIA Harrington) Screen for colon cancer PTSD (post-traumatic stress disorder) Major depressive disorder, recurrent episode Insomnia Nicotine dependence Diabetic neuropathy AMANDA (obstructive sleep apnea) Hypertension GERD (gastroesophageal reflux disease) Migraine Leg mass Multiple joint pain Hypothyroidism Diabetes Surgical History (Updated 09/26/23 @ 15:35 by Priscila Adler RN) History of colonoscopy with polypectomy (~07/24/23) History of thyroid surgery Social History Smoking/Tobacco Use Status: Current every day Tobacco Type: cigarettes Smoking risk assessment performed?: Yes Alcohol Intake: former Drug use: Never Substance use type: does not use Housing: apartment Current gender identity: female Do you feel safe at home: Yes Do you feel safe in your relationship?: Yes
[2024-11-30 16:53] VITALS: BP 131/78; PULSE 79; RESP 16; O2SAT 98
[2024-11-30] MEDS: Diclofenac 1% Gel 100 GM TUBE TP (17:05)
[2024-11-30] MEDS: Acetaminophen 500 MG TAB 1000 MG PO (17:08)
--- NOTE | 2024-11-30 17:34 | DI.RAD_ITS ---
Exam(s) XR SHOULDER LT COMPLETE 2+V EXAM: XR SHOULDER LT COMPLETE 2+V CLINICAL HISTORY: L shoulder pain. TECHNIQUE: 2D digital imaging was performed. COMPARISON: CR XR SHOULDER LT COMPLETE 2+V from 12/23/2020 FINDINGS: Five views. No evidence acute fracture or dislocation nor diminution of the subacromial space. However, there is a 5 x 4 mm calcific density in the soft tissues just above the greater tuberosity consistent with ca lcific rotator cuff tendinitis. There are no degenerative changes evident in the glenohumeral and AC joints. Bone density normal. No osseous lesions. IMPRESSION: Findings are consistent with calcific rotator cuff tendinitis of the left shoulder. DATA REPOSITORY: RADIATION DOSE DELIVERED:
== END 2024-11-30 18:05 | disposition home or self-care (01) ==
PROVIDERS: Emergency Provider Physician Assistant; PCP Physician Assistant
DX: M75.32 Calcific tendinitis of left shoulder (principal); M79.7 Fibromyalgia; I10 Essential (primary) hypertension; E11.40 Type 2 diabetes mellitus with diabetic neuropathy, unspecified; E03.9 Hypothyroidism, unspecified; F17.210 Nicotine dependence, cigarettes, uncomplicated; Z79.4 Long term (current) use of insulin; Z79.84 Long term (current) use of oral hypoglycemic drugs
CPT/HCPCS: 99283; 73030

== ENCOUNTER 2024-12-01 12:08 | Outpatient (REF) | payer MEDICAID, SELFPAY ==
[2024-12-01 15:37] LABS: Hemoglobin A1C 6.9 % (<5.7)
[2024-12-01 15:52] LABS: ALT 31 U/L (14-59); AST 22 U/L (15-37); Albumin 3.8 g/dL (3.4-5.0); Alkaline Phosphatase 183 U/L (46-116); Anion Gap 10.3 mmol/L (3-11); BUN 7 mg/dL (7-18); Bilirubin, Total 0.4 mg/dL (0.2-1.0); CO2 28.7 mmol/L (21.0-32.0); CREATININE 0.7 mg/dL (0.55-1.02); Calcium 9.4 mg/dL (8.5-10.1); Calculated LDL 91 mg/dL (<100); Chloride 103 mmol/L (98-107); Cholesterol 156 mg/dL (<200); Estimated GFR 102.71 (mL/min/1.73m2); Glucose 84 mg/dL (74-106); HDL Cholesterol 45 mg/dL (>or=50); Potassium 4.6 mmol/L (3.5-5.1); Sodium 142 mmol/L (136-145); TSH 0.21 uIU/mL (0.36-3.74); Total Protein 7.5 g/dL (6.4-8.2); Triglyceride 104 mg/dL (<150)
[2024-12-01 23:14] LABS: T4, Free 2.3 ng/dL (0.8-2.2)
== END 2024-12-01 12:09 | disposition home or self-care (01) ==
LOC: NCHCN 12:08
PROVIDERS: Internal Medicine Endocrinology, Diabetes & Metabolism; PCP Physician Assistant; Visit Provider Physician Assistant
DX: E11.42 Type 2 diabetes mellitus with diabetic polyneuropathy; E03.9 Hypothyroidism, unspecified; E66.01 Morbid (severe) obesity due to excess calories
CPT/HCPCS: 80053; 80061; 82043; 82570; 83036; 84439; 84443

== ENCOUNTER 2024-12-08 16:00 | Outpatient (REF) | payer MEDICAID, SELFPAY ==
[2024-12-08 16:03] LABS: COMMENT (LAB VIEW ONLY) < 13.00 mg/dL
== END 2024-12-08 16:01 | disposition home or self-care (01) ==
LOC: NCHCN 16:00
PROVIDERS: PCP Physician Assistant; Visit Provider Physician Assistant
DX: E11.9 Type 2 diabetes mellitus without complications (principal)
CPT/HCPCS: 82043; 82570

== ENCOUNTER 2025-04-07 14:14 | Outpatient (REF) | payer MEDICAID, SELFPAY ==
[2025-04-07 17:28] LABS: Hemoglobin A1C 6.3 % (<5.7)
[2025-04-07 17:40] LABS: TSH 1.40 uIU/mL (0.36-3.74)
== END 2025-04-07 14:15 | disposition home or self-care (01) ==
LOC: NCHCN 14:14
PROVIDERS: PCP Physician Assistant; Visit Provider Physician Assistant
DX: E11.9 Type 2 diabetes mellitus without complications (principal); E03.9 Hypothyroidism, unspecified
CPT/HCPCS: 83036; 84443

== ENCOUNTER 2025-05-12 19:39 | Outpatient (REF) | payer MEDICAID, SELFPAY ==
[2025-05-12 17:12] LABS: Anion Gap 12.7 mmol/L (3-11); BUN 8 mg/dL (7-18); CO2 27.3 mmol/L (21.0-32.0); Calcium 9.3 mg/dL (8.5-10.1); Chloride 101 mmol/L (98-107); Estimated GFR 111.39 (mL/min/1.73m2); Glucose 81 mg/dL (74-106); Potassium 4.2 mmol/L (3.5-5.1); Sodium 141 mmol/L (136-145)
== END 2025-05-12 19:40 | disposition home or self-care (01) ==
LOC: LBN 19:39
PROVIDERS: PCP Physician Assistant; Visit Provider Physician Assistant Medical
DX: R25.2 Cramp and spasm (principal)
CPT/HCPCS: 80048

== ENCOUNTER 2025-07-08 17:07 | Emergency (ER) | payer MEDICAID, SELFPAY ==
--- NOTE | 2025-07-08 17:00 | DI.RAD_ITS ---
Exam(s) XR HIP LT COMPLETE AP PELVIS EXAM: XR HIP LT COMPLETE AP PELVIS CLINICAL HISTORY: L hip pain. TECHNIQUE: 2D digital imaging was performed of the left hip. Two views were obtained. AP pelvis and lateral left hip views were obtained. COMPARISON: No exams were available for comparison FINDINGS: BONES: No acute fracture is present. No bony destructive lesion is seen. JOINTS: No dislocation present. The hip joints are well maintained as are the sacroiliac joints and symphysis pubis. SOFT TISSUE: Normal. There is calcific tendinosis adjacent to the greater trochanters bilaterally. IMPRESSION: 1. No acute abnormality. 2. Calcific tendinosis adjacent to the greater trochanters bilaterally. DATA REPOSITORY: RADIATION DOSE DELIVERED:
[2025-07-08 17:08] VITALS: BP 138/76; PULSE 83; RESP 16; TEMP 36.5; O2SAT 96
--- NOTE | 2025-07-08 17:30 | DI.RAD_ITS ---
Exam(s) XR LUMBAR SPINE AP, LAT EXAM: XR LUMBAR SPINE AP, LAT CLINICAL HISTORY: lumbar tenderness. TECHNIQUE: 2D digital imaging was performed of the lumbar spine. Three images were obtained. AP, lateral and L5-S1 spot views were obtained. COMPARISON: CT CT CHEST LUNG CANCER SCREEN from 09/11/2024 FINDINGS: BONES: No fracture or destructive lesion. There are endplate osteophytes at multiple levels of the lumbar spine but particularly at L5-S1. Degenerative changes of the facets are seen at L4-5 and L5-S1. DISKS: There is moderate disc space narrowing at L5-S1. ALIGNMENT: There is 3-4 mm anterolisthesis of L4 on L5 which is likely degenerative. Lumbar spinal alignment is within normal limits. No spondylolysis or spondylolisthesis. SOFT TISSUE: There is a round peripherally calcified lesion in the right upper quadrant consistent with a gallstone. IMPRESSION: 1. There is no acute abnormality. 2. Mild degenerative changes seen in the lumbar spine. 3. Cholelithiasis. DATA REPOSITORY: RADIATION DOSE DELIVERED:
--- NOTE | 2025-07-08 18:12 | W.ED.GENAD ---
Discharge Plan Disposition Patient Disposition: Home Condition: Stable Discharge Details Clinical Impression: Sciatica Primary Care Provider: Long Erickson ED Provider: Ruben Hough Home Meds and New Rx's Prescriptions: New methocarbamol 750 mg tablet 750 mg PO QID 7 Days Qty: 28 0RF methocarbamol 750 mg tablet 750 mg PO QID 10 Days Qty: 40 0RF Continued nystatin [Nyamyc] 100,000 unit/gram powder 1 applic topical BID Qty: 60 12RF Rx Instructions: apply to affected area BID for 7days. use prn for yeast dermatitis buspirone 15 mg tablet 15 mg PO BID duloxetine 60 mg capsule,delayed release(DR/EC) 60 mg PO DAILY levothyroxine 125 mcg capsule 125 mcg PO DAILY Ozempic 2 mg/dose (8 mg/3 mL) pen injector 2 mg subcut QWEEK prazosin 2 mg capsule 2 mg PO QHS zolpidem 5 mg tablet 5 mg PO QHS lisinopril 5 mg tablet 5 mg PO DAILY atorvastatin 40 mg tablet 40 mg PO DAILY pregabalin 100 mg capsule 100 mg PO TID tizanidine 4 mg tablet 4 mg PO DAILY Patient Comments: TAKE ONE TABLET BY MOUTH EVERY EVENING NEEDED FOR PAIN AND SPASMS glipizide 10 mg Tablet Extended Release 24hr 10 mg PO BID famotidine 20 mg Tablet 20 mg PO BID oxybutynin chloride 5 mg Tablet 5 mg PO TID montelukast 10 mg tablet 10 mg PO DAILY Patient Comments: TK 1 T PO D FOR ASTHMA sumatriptan succinate 50 mg tablet See Rx Instructions .ROUTE .COMPLEX PRN Patient Comments: TK 1 T PO AOS OF MIGRAINE. MAY REPEAT IN 2 H FOR 1 Rx Instructions: 50 mg orally PRN; Discharge Instructions Instructions: Methocarbamol, Sciatica ED Additional Instructions: You were seen in the emergency department for your atraumatic left hip and lower back pain consistent with sciatica. You need to be taking 650 mg of Tylenol 4 times per day, retirement between Tylenol dosings please take 400 mg of ibuprofen also 4 times per day, take the prescribed methocarbamol as directed, apply an [id number] lidocaine patch to your lower back each night, purchase zawn-few-zeuavna Voltaren gel to rub on the area of pain 2-3 times per day, apply gentle heat to the area, the only way to definitively cure this back pain is to attend physical therapy visits and strengthen your core muscles. Please return for any urinary retention, profound weakness of the legs or bowel incontinence. Stand Alone Forms: Physical Therapy Referral Referrals: Long Erickson [Primary Care Provider, Medicine] Discharge Data Discharge Date/Time-TO BE ENTERED AT DEPARTURE: 07/08/25 18:06 HPI General Date/Time Provider Initiated Documentation: 07/08/25 17:14. HPI Narrative: 55 year-old female presents to ED today by POV/ambulating with a chief complaint of L hip pain, atraumatic that is position dependent with onset at 0530 this morning. Quality described as deep aching pain in hip that comes from the lower back and sometimes shoots around to anterior torso/upper leg, no radiation to complete numbness, foot dragging, urinary retention, bowel incontinence, fevers. Severity is described as moderate. Palliating factors include nothing specific attempted. Provoking factors include certain movements. Patient not anticoagulated. Related Data Home Medications ?Medication ?Instructions ?Recorded ?Confirmed famotidine 20 mg tablet 20 mg PO BID 01/09/20 07/08/25 glipizide 10 mg tablet, extended 10 mg PO BID 01/09/20 07/08/25 release 24 hr oxybutynin chloride 5 mg tablet 5 mg PO TID 01/09/20 07/08/25 montelukast 10 mg tablet 10 mg PO DAILY 07/03/20 07/08/25 nystatin 100,000 unit/gram topical 1 applic topical BID #60 grams 09/14/20 07/08/25 powder ([facility]) atorvastatin 40 mg tablet 40 mg PO DAILY 05/01/23 07/08/25 lisinopril 5 mg tablet 5 mg PO DAILY 05/01/23 07/08/25 pregabalin 100 mg capsule 100 mg PO TID 05/01/23 07/08/25 sumatriptan succinate 50 mg tablet See Rx Instructions .Route 07/17/23 07/08/25 .COMPLEX PRN tizanidine 4 mg tablet 4 mg PO DAILY 11/30/24 07/08/25 buspirone 15 mg tablet 15 mg PO BID 06/02/25 07/08/25 duloxetine 60 mg capsule,delayed 60 mg PO DAILY 06/02/25 07/08/25 release levothyroxine 125 mcg capsule 125 mcg PO DAILY 06/02/25 07/08/25 prazosin 2 mg capsule 2 mg PO QHS 06/02/25 07/08/25 semaglutide 2 mg/dose (8 mg/3 mL) 2 mg subcut QWEEK 06/02/25 07/08/25 subcutaneous pen injector (Ozempic) zolpidem 5 mg tablet 5 mg PO QHS 06/02/25 07/08/25 methocarbamol 750 mg tablet 750 mg PO QID 7 days #28 tabs 07/08/25 methocarbamol 750 mg tablet 750 mg PO QID 10 days #40 tabs 07/09/25 Previous Rx's ?Medication ?Instructions ?Recorded nystatin 100,000 unit/gram topical 1 applic topical BID #60 grams 09/14/20 powder ([facility]) methocarbamol 750 mg tablet 750 mg PO QID 7 days #28 tabs 07/08/25 methocarbamol 750 mg tablet 750 mg PO QID 10 days #40 tabs 07/09/25 Allergies Allergy/AdvReac Type Severity Reaction Status Date / Time bupropion (Wellbutrin) Allergy Severe Unknown Verified 07/08/25 17:13 lamotrigine (From Lamictal) Allergy Severe Hives Verified 07/08/25 17:13 Sulfa (Sulfonamide Allergy Intermediate hives Verified 07/08/25 17:13 Antibiotics) Penicillins Allergy Anaphylaxsi Verified 07/08/25 17:13 s ibuprofen AdvReac Intermediate nose Verified 07/08/25 17:13 bleeding aspirin AdvReac Bleeding Verified 07/08/25 17:13 General Stated Complaint: Orthopedic LORI: 4 Review of Systems All systems reviewed & are unremarkable except as noted in HPI and below Exam Narrative Exam Narrative: GENERAL APPEARANCE: Well-nourished, non-toxic, awake and alert, atraumatic, no acute distress. SKIN: Warm, pink, dry, intact, without rashes/lesions/ulcerations. HEAD: Normocephalic, atraumatic, normal hair distribution for gender/age. EYES: Normal conjunctiva, no exudates on lids/lashes. ENT: Nares patent, no circumoral cyanosis, no facial swelling NECK: Supple, trachea midline, painless cervical ROM. LUNGS/CHEST: Non-labored respirations, normal A/P diameter, symmetrical expansion, no chest wall deformity HEART (CV/PV): No peripheral edema, no JVD. ABDOMEN: Soft, non-distended, no guarding. MSK: Normal ROM, no swelling/deformity to bilateral UEs or LEs, moving all extremities without weakness, no cyanosis, spine midline without tenderness/crepitus, has L paraspinal tenderness, strength 5/5 L leg, normal curvature. NEURO: Mental Status AAOx4 - alert to person, place, time, events No facial droop, no forehead involvement. Motor: No focal weakness - strength 5/5 in bilateral UEs and LEs, proximal and distal, symmetric. Sensory: sensation intact to light touch globally. Gait normal: patient ambulated without ataxia into ED room. PSYCH: euthymic, cooperative, pleasant, appropriate speech Course Vital Signs Vital signs: Vital Signs Temperature 36.5 C 07/08/25 17:08 Pulse 83 07/08/25 17:08 Respiratory Rate 16 07/08/25 17:08 Blood Pressure 138/76 07/08/25 17:08 Pulse Oximetry 96 07/08/25 17:08 Temperature 36.5 C 07/08/25 17:08 Temperature Source Temporal Artery Scan 07/08/25 17:08 Pulse 83 07/08/25 17:08 Respiratory Rate 16 07/08/25 17:08 Blood Pressure 138/76 07/08/25 17:08 Blood Pressure Position Sitting 07/08/25 17:08 Pulse Oximetry 96 07/08/25 17:08 Oxygen Delivery Method Room Air 07/08/25 17:08 Oxygen Flow Rate 0 07/08/25 17:08 Pain Level 9 07/08/25 17:08 Medical Decision Making This dictation utilizes [id number] dictation software and may contain unedited grammatical errors. 55 year-old female presents to ED today by POV/ambulating with a chief complaint of L hip pain, atraumatic that is position dependent with onset at 0530 this morning. Quality described as deep aching pain in hip that comes from the lower back and sometimes shoots around to anterior torso/upper leg, no radiation to complete numbness, foot dragging, urinary retention, bowel incontinence, fevers. Severity is described as moderate. Palliating factors include nothing specific attempted. Provoking factors include certain movements. Patients' medical history: Diabetic neuropathy, GERD, myofascial pain syndrome, obesity. Family and social history: Noncontributory. Pertinent exam findings / vital signs include left lumbar paraspinal tenderness, no midline tenderness or crepitus or step-offs, strength 5/5 in left leg, sensation intact. Differential / pathologies of concern include sciatica, lumbar back pain, arthritis, sciatica. Diagnostic studies of: -XR L Hip and XR Lumbar Spine - no acute fractures, shows mild degeneration of lumbar spine and calcific tendinitis L hip. Interventions of: -650mg PO Tylenol, 1g PO Robaxin, 1 Lidoderm patch. ED Course/Assessment/Plan: 55-year-old female presents with left hip pain since 530 this morning at the position dependent radiates from her lower back, I spent time discussing her degenerative changes likely contributing to this as well as calcific tendinitis, she is welcome to follow-up with physical therapy visits and orthopedics as needed, I did associate counsel on regular dose of Tylenol and sent a prescription for methocarbamol and encouraged OTC Lidoderm patch and rklb-tfu-ugyrtag Voltaren gel, strict return criteria for any bowel or urinary changes with complete numbness and weakness of the legs. Findings not consistent with myelopathy, cauda equina, spinal epidural abscess. Disposition of sciatica. Patient verbalized understanding of the plan and return to ED criteria and engaged in shared decision making. Medical Records Medical records reviewed: Yes I reviewed the patient's medical records. Imaging Data Radiologic Study: Attestation: I personally reviewed and interpreted this imaging study as follows: Imaging: X-Ray Radiologist's impression: EXAM: XR HIP LT COMPLETE AP PELVIS CLINICAL HISTORY: L hip pain. TECHNIQUE: 2D digital imaging was performed of the left hip. Two views were obtained. AP pelvis and lateral left hip views were obtained. COMPARISON: No exams were available for comparison FINDINGS: BONES: No acute fracture is present. No bony destructive lesion is seen. JOINTS: No dislocation present. The hip joints are well maintained as are the sacroiliac joints and symphysis pubis. SOFT TISSUE: Normal. There is calcific tendinosis adjacent to the greater trochanters bilaterally. IMPRESSION: 1. No acute abnormality. 2. Calcific tendinosis adjacent to the greater trochanters bilaterally. Radiologic Study #2: Attestation: I personally reviewed and interpreted this imaging study as follows: Imaging: X-Ray Radiologist's impression: EXAM: XR LUMBAR SPINE AP, LAT CLINICAL HISTORY: lumbar tenderness. TECHNIQUE: 2D digital imaging was performed of the lumbar spine. Three images were obtained. AP, lateral and L5-S1 spot views were obtained. COMPARISON: CT CT CHEST LUNG CANCER SCREEN from 09/11/2024 FINDINGS: BONES: No fracture or destructive lesion. There are endplate osteophytes at multiple levels of the lumbar spine but particularly at L5-S1. Degenerative changes of the facets are seen at L4-5 and L5-S1. DISKS: There is moderate disc space narrowing at L5-S1. ALIGNMENT: There is 3-4 mm anterolisthesis of L4 on L5 which is likely degenerative. Lumbar spinal alignment is within normal limits. No spondylolysis or spondylolisthesis. SOFT TISSUE: There is a round peripherally calcified lesion in the right upper quadrant consistent with a gallstone. IMPRESSION: 1. There is no acute abnormality. 2. Mild degenerative changes seen in the lumbar spine. 3. Cholelithiasis. PFSH All Active Problems (Updated 07/08/25 @ 18:29 by GARDENIA Harrington) Sciatica (Acute) Sessile serrated polyp of colon (Acute) X1 sessile, X3 hyperplastic Myofascial pain syndrome (Acute) Left shoulder pain (Acute) Morbidly obese (Acute) Yeast dermatitis (Acute) Skin ulcer of groin, limited to breakdown of skin (Acute) seconary to obesity and DM Medical History (Updated 07/08/25 @ 18:29 by GARDENIA Harrington) Screen for colon cancer PTSD (post-traumatic stress disorder) Major depressive disorder, recurrent episode Insomnia Nicotine dependence Diabetic neuropathy AMANDA (obstructive sleep apnea) Hypertension GERD (gastroesophageal reflux disease) Migraine Leg mass Multiple joint pain Hypothyroidism Diabetes Surgical History (Updated 09/26/23 @ 15:35 by Priscila Adler RN) History of colonoscopy with polypectomy (~07/24/23) History of thyroid surgery Social History Smoking/Tobacco Use Status: Current every day Tobacco Type: cigarettes Smoking risk assessment performed?: Yes Alcohol Intake: former Drug use: Never Substance use type: does not use Housing: apartment Current gender identity: female Do you feel safe at home: Yes Do you feel safe in your relationship?: Yes
[2025-07-08] MEDS: Lidocaine 5% Patch 1 PATCH TP (18:32)
[2025-07-08] MEDS: Acetaminophen 325 MG TAB 650 MG PO (18:33)
[2025-07-08] MEDS: Methocarbamol 500 MG TAB 1000 MG PO (18:33)
[2025-07-08 18:51] VITALS: BP 135/64; PULSE 81; RESP 15; TEMP 36.6; O2SAT 98
== END 2025-07-08 18:06 | disposition home or self-care (01) ==
PROVIDERS: Emergency Provider Physician Assistant; PCP Physician Assistant
DX: M54.32 Sciatica, left side (principal)
CPT/HCPCS: 99284; 72100; 73502

== ENCOUNTER 2025-08-12 15:59 | Outpatient (CLI) | payer MEDICAID, SELFPAY ==
--- NOTE | 2025-08-12 15:00 | DI.RAD_ITS ---
Exam(s) XR WRIST RT COMPLETE EXAM: XR WRIST RT COMPLETE CLINICAL HISTORY: right wrist pain. TECHNIQUE: 2D digital imaging was performed. Three views. COMPARISON: CR,XR XR WRIST LT COMP NAVICULAR from 07/03/2020 FINDINGS: BONES: No acute fracture is present. No bony destructive lesion is seen. JOINTS: The carpal bones are normally aligned. There are no significant degenerative changes. SOFT TISSUE: Normal. IMPRESSION: Unremarkable radiographs of the right wrist. DATA REPOSITORY: RADIATION DOSE DELIVERED:
== END 2025-08-12 16:00 | disposition home or self-care (01) ==
LOC: DIORS 16:00
PROVIDERS: PCP Physician Assistant; Visit Provider Physician Assistant
DX: M25.531 Pain in right wrist (principal)
CPT/HCPCS: 73110